=== PATIENT | female | born 1930 | race Caucasian/White ===

== ENCOUNTER 2017-02-15 13:01 | Inpatient (IN) | payer MEDICARE ==
[2017-02-15 13:08] VITALS: BMI 27.4
[2017-02-15] MEDS ORDERED: Sodium Chloride 0.9% 500 ML IV STA (13:22)
[2017-02-15 13:32] LABS: ADD MANUAL DIFF? NO
[2017-02-15 13:35] LABS: BASO # 0.01 K/mm3 (0.0-2.0); BASO % 0.2 % (0.0-3.0); EOS % 0.5 % (1.5-5.0); GRAN # 4.75 (1.4-6.5); GRAN % 80.3 % (50.0-68.0); HEMATOCRIT 40.1 % (36.0-48.0); LYMPH # 0.7 (1.2-3.4); LYMPH % 11.2 % (22.0-35.0); MEAN CELL VOLUME 85.1 fL (80.0-105.0); MEAN CORPUSCULAR HEMOGLOBIN 29.3 pg (25.0-35.0); MEAN CORPUSCULAR HGB CONC 34.4 g/dl (31.0-37.0); MEAN PLATELET VOLUME 11.7 fl (7.0-11.0); MONO # 0.5 (0.1-0.6); MONO % 7.8 % (1.0-6.0); PLATELET COUNT 205 10^3/uL (120.0-450.0); RED CELL DISTRIBUTION WIDTH 13.3 % (11.5-14.5); WHITE BLOOD COUNT 5.9 10^3/ul (4.5-11.0)
--- NOTE | 2017-02-15 13:41 | ED PDOC ---
Arrival/HPI - General Chief Complaint: GI Problem Time Seen by Provider: 02/15/17 13:21 Historian: Patient - History of Present Illness Narrative History of Present Illness (Text): 02/15/17 13:49 An 86 year old female presents to the Emergency department complaining of bright red hematochezia over night. Patient denies any weakness, shortness of breath, chest pain, dizziness or any other complaints at this time. Time/Duration: Other (overnight) Symptom Onset: Sudden Symptom Course: Unchanged Activities at Onset: Rest Modifying Factors (Text): none Context: Home Past Medical History - Provider Review Nursing Documentation Reviewed: Yes - Tetanus Immunization Tetanus Immunization: Unknown - Cardiac Hx Cardiac Disorders: Yes Hx Cardiac Arrhythmia: Yes Hx Hypertension: Yes - Pulmonary Hx Respiratory Disorders: No - Neurological Hx Neurological Disorder: No Hx Paralysis: No - HEENT Hx HEENT Disorder: No - Renal Hx Renal Disorder: No - Endocrine/Metabolic Hx Endocrine Disorders: No - Hematological/Oncological Hx Blood Disorders: No Hx Blood Transfusions: No Hx Blood Transfusion Reaction: No - Integumentary Hx Dermatological Disorder: No - Musculoskeletal/Rheumatological Hx Musculoskeletal Disorders: Yes (OSTEOPENIA) - Gastrointestinal Hx Gastrointestinal Disorders: No - Genitourinary/Gynecological Hx Genitourinary Disorders: Yes Other/Comment: vaginal prolapse - Psychiatric Hx Psychophysiologic Disorder: No Hx Emotional Abuse: No Hx Physical Abuse: No Hx Substance Use: No - Surgical History Hx Eye Surgery: Yes - Anesthesia Hx Anesthesia: Yes Hx Anesthesia Reactions: No Hx Malignant Hyperthermia: No - Suicidal Assessment Feels Threatened In Home Enviroment: No Family/Social History - Physician Review Nursing Documentation Reviewed: Yes Family/Social History: No Known Family HX Smoking Status: Former Smoker Hx Alcohol Use: No Hx Substance Use: No Hx Substance Use Treatment: No Allergies/Home Meds Allergies/Adverse Reactions: Allergies ciprofloxacin Allergy (Intermediate, Verified 02/16/17 20:17) RASH RED RASH ON TRUNK Penicillins Allergy (Verified 02/15/17 13:08) RASH Home Medications: Home Meds Medication Instructions Recorded Confirmed Calcium Carbonate/Magnesium Ox 1 tab PO DAILY 11/01/13 02/18/17 [Oyster Shell Calcium-Magnes Tb] Diltiazem HCl [Tiazac] 240 mg PO DAILY 06/22/16 02/18/17 Simvastatin [Zocor] 10 mg PO DAILY 06/22/16 02/18/17 Review of Systems - Physician Review All systems were reviewed & negative as marked: Yes Physical Exam - Physical Exam Narrative Physical Exam (Text): 02/15/17 13:48 - Review of Systems Constitutional: Normal. absent: Fatigue, Weight Change, Fevers Eyes: Normal ENT: Normal Respiratory: Normal absent: SOB, Cough, Sputum Cardiovascular: Normal absent: Chest pain, Palpitations, Syncope Gastrointestinal: Present: hematochezia absent: Abdominal pain, Diarrhea, Nausea , Vomiting Genitourinary: Normal. absent: Dysuria, Frequency, Hematuria Musculoskeletal: Normal. absent: Arthralgias, Back Pain, Neck Pain Skin: Normal Neurological: Normal absent: Focal Weakness Endocrine: Normal Hemo/Lymphatic: Normal Psychiatric: Normal - Physical exam Patient appears age appropriate, speaking full sentences without difficulty - Systems Exam Head: Present: Atraumatic, Normocephalic Pupils: Present: PERRL Extraocular Muscles: Present: EOMI Conjunctiva: Present: Normal Mouth: Present: Moist Mucous Membranes Neck: Present: Normal Range of Motion. No: MIDLINE TENDERNESS, Paraspinal Tenderness Respiratory/Chest: Present: Clear to Auscultation, Good Air Exchange. No: Respiratory Distress, Accessory Muscle Use, Tachypneic Cardiovascular: Present: Regular Rate and Rhythm, Normal S1, S2, Peripheral Pulses Present. No: Murmurs Abdomen: Present: Normal Bowel Sounds, No: Tenderness, Peritoneal Signs, Rebound, Guarding, Distention Back: Present: Normal Inspection. No: Midline Tenderness, Paraspinal Tenderness Upper Extremity: Present: Normal Inspection. No: Cyanosis, Edema Lower Extremity: Present: Normal Inspection. No: Edema Neurological: Present: GCS=15, Speech Normal, cranial nerves II through XII fully intact with no cerebellar abnormality, neuro-sensory fully intact. No focal neurological deficits. Skin: Present: Warm, Dry, Normal Color. No: Rashes Lymphatic: Present: OX3, NI, NC Psychiatric: Present: Alert, Oriented x 3, Normal Insight, Normal Concentration Rectal: Present: good rectal tone, hard stool in vault No: hemorrhoid (resolution rep : josiah Connell) Vital Signs Reviewed: Yes Vital Signs Temp Pulse Resp BP Pulse Ox 02/15/17 19:00 78 18 160/81 H 100 02/15/17 17:00 85 18 153/61 H 100 02/15/17 15:01 78 18 155/59 H 100 02/15/17 13:08 99 F 80 16 157/57 H 100 Temperature: Afebrile Blood Pressure: Hypertensive Pulse: Regular Respiratory Rate: Normal Appearance: Positive for: Well-Appearing, Non-Toxic, Comfortable Pain Distress: None Mental Status: Positive for: Alert and Oriented X 3 Medical Decision Making ED Course and Treatment: 02/15/17 13:41 Impression: 86 year old female with bright red hematochezia. On physical exam, patient's rectal exam (+) had hard stool in vault, good rectal tone, no hemorrhoids. (+) for blood Differential Diagnosis include but are not limited to: diverticular disease vs. anemia Plan: -- EKG -- Labs -- Protonix, IV fluids -- Reassess and disposition Prior Visits: Notes and results from previous visits were reviewed. Patient last seen in the Emergency department on 06/22/16 for evaluation of lower abdominal and rectal pain. Patient felt better after Bowel movement and reported no longer tender to palpation in lower abdomen. Patient was advised to follow up with Dr. Molina. Progress Notes: EKG: Ordered, reviewed, and independently interpreted the EKG. Rate : 70 BPM Rhythm : NSR Interpretation : No ST-segment elevations or depressions, no T-wave inversions, normal intervals. Comparison : No previous EKG for comparison. 02/15/17 14:49 - Lab Interpretations Lab Results: 02/15/17 13:20 02/15/17 13:20 Lab Results 02/15/17 14:06: Transferrin 232.82 02/15/17 13:24: TIBC 303 02/15/17 13:20: Sodium 141, Potassium 3.6, Chloride 101, Carbon Dioxide 31, Anion Gap 13, BUN 19, Creatinine 0.6, Est GFR ( Amer) > 60, Est GFR (Non- Af Amer) > 60, Random Glucose 130 H, Calcium 9.3, Ferritin 94.0, Total Bilirubin 1.0, AST 267 H, ALT 315 H, Alkaline Phosphatase 105, Lactate Dehydrogenase 766 H, Total Creatine Kinase 46, Troponin I < 0.01, Total Protein 7.9, Albumin 4.2, Globulin 3.7, Albumin/Globulin Ratio 1.1 02/15/17 13:20: PT 11.4, INR 1.06, APTT 26.8 02/15/17 13:20: WBC 5.9 D, RBC 4.71, Hgb 13.8, Hct 40.1, MCV 85.1, MCH 29.3, MCHC 34.4, RDW 13.3, Plt Count 205, MPV 11.7 H, Gran % 80.3 H, Lymph % (Auto) 11.2 L, Pitt % (Auto) 7.8 H, Eos % (Auto) 0.5 L, Baso % (Auto) 0.2, Gran # 4.75 , Lymph # 0.7 L, Pitt # 0.5, Eos # 0.0, Baso # 0.01 I have reviewed the lab results: Yes - RAD Interpretation Radiology Orders: 02/15/17 14:57 CHEST PORTABLE [RAD] Stat - EKG Interpretation Interpreted by ED Physician: Yes Type: 12 lead EKG - Medication Orders Current Medication Orders: Discontinued Medications Alprazolam (Xanax) 0.25 mg PO TID PRN; Protocol PRN Reason: Anxiety Stop: 02/24/17 14:01 Bisacodyl (Dulcolax) 10 mg RC ONCE ONE Stop: 02/16/17 09:04 Last Admin: 02/16/17 13:49 Dose: Not Given Non-Admin Reason: Patient Refused Bisacodyl (Dulcolax) 5 mg PO BID ONE Stop: 02/16/17 13:04 Last Admin: 02/16/17 13:49 Dose: Not Given Non-Admin Reason: Patient Refused Bisacodyl (Dulcolax) 10 mg RC ONCE ONE Stop: 02/17/17 07:40 Last Admin: 02/17/17 08:23 Dose: 10 mg Diltiazem HCl (Cardizem Cd) 240 mg PO DAILY VIC Last Admin: 02/18/17 08:59 Dose: 240 mg Diphenhydramine HCl (Benadryl) 25 mg IVP STAT STA Stop: 02/16/17 04:02 Last Admin: 02/16/17 22:06 Dose: Diphenhydramine HCl (Benadryl) Confirm Administered Dose 50 mg .ROUTE .STK-MED ONE Stop: 02/16/17 04:12 Last Admin: 02/16/17 22:06 Dose: Fentanyl (Fentanyl) Confirm Administered Dose 100 mcg .ROUTE .STK-MED ONE Stop: 02/18/17 14:02 Glucagon (Glucagen Diagnostic Kit) Confirm Administered Dose 1 mg .ROUTE .STK- MED ONE Stop: 02/18/17 08:19 Sodium Chloride (Sodium Chloride 0.9%) 500 mls @ 1,000 mls/hr IV .Q30M STA Stop: 02/15/17 13:51 Last Admin: 02/15/17 13:41 Dose: 1,000 mls/hr Sodium Chloride (Sodium Chloride 0.9%) 1,000 mls @ 70 mls/hr IV .[id number] VIC Last Admin: 02/17/17 05:19 Dose: 70 mls/hr Ciprofloxacin (Cipro 400mg/200ml Dsw) 200 mls @ 133.3 mls/hr IVPB Q12 VIC PRN Reason: Protocol Stop: 02/15/17 23:31 Last Admin: 02/15/17 23:08 Dose: 133.3 mls/hr Potassium Chloride (Potassium Chloride 10 Meq/100 Ml) 10 meq in 100 mls @ 100 mls/hr IVPB ONCE ONE Stop: 02/16/17 09:33 Last Admin: 02/16/17 10:09 Dose: 100 mls/hr Aztreonam (Azactam 1 Gm) 100 mls @ 100 mls/hr IVPB Q8 VIC PRN Reason: Protocol Stop: 02/24/17 14:01 Last Admin: 02/18/17 16:08 Dose: Not Given Non-Admin Reason: Patient in Endo Metronidazole (Flagyl) 500 mg in 100 mls @ 100 mls/hr IVPB Q8 VIC PRN Reason: Protocol Last Admin: 02/18/17 16:08 Dose: Not Given Non-Admin Reason: Patient in Endo Vancomycin HCl (Vancomycin 1gm) 1 gm in 250 mls @ 167 mls/hr IVPB Q12H VIC PRN Reason: Protocol Last Admin: 02/18/17 10:10 Dose: 167 mls/hr Potassium Chloride (Potassium Chloride 10 Meq/100 Ml) 10 meq in 100 mls @ 100 mls/hr IVPB ONCE ONE Stop: 02/18/17 09:17 Last Admin: 02/18/17 08:57 Dose: 100 mls/hr Lactated Ringer's (Lactated Ringer's) 1,000 mls @ 75 mls/hr IV .[id number] VIC Stop: 02/18/17 16:57 Indomethacin (Indocin Suppository) Confirm Administered Dose 100 mg SC .STK-MED ONE Stop: 02/18/17 08:20 Iohexol (Omnipaque 240 (50 Ml)) Confirm Administered Dose 50 ml .ROUTE .STK-MED ONE Stop: 02/15/17 20:26 Last Admin: 02/16/17 22:07 Dose: Iohexol (Omnipaque 240 (50 Ml)) Confirm Administered Dose 100 ml .ROUTE .STK- MED ONE Stop: 02/18/17 08:19 Midazolam HCl (Versed Inj) Confirm Administered Dose 2 mg .ROUTE .STK-MED ONE Stop: 02/18/17 14:02 Mineral Oil (Fleet Mineral Oil Enema) 135 ml RC Q6 [facility] Last Admin: 02/17/17 05:44 Dose: 135 ml Pantoprazole Sodium (Protonix Inj) 40 mg IVP STAT STA Stop: 02/15/17 13:23 Last Admin: 02/15/17 13:40 Dose: 40 mg Pantoprazole Sodium (Protonix Inj) 40 mg IVP DAILY [facility] Last Admin: 02/18/17 08:59 Dose: 40 mg Pneumococcal Polyvalent Vaccine (Pneumovax 23 Vaccine) 0.5 ml IM .ONCE ONE Stop: 02/15/17 23:04 Polyethylene Glycol (Miralax) 17 gm PO BID [facility] Last Admin: 02/18/17 17:57 Dose: 17 gm Potassium Chloride (K-Dur 20 Meq Er Tab) 40 meq PO ONCE ONE Stop: 02/17/17 09:40 Last Admin: 02/17/17 10:13 Dose: 40 meq Potassium Chloride (Potassium Chloride Oral Soln) 40 meq PO ONCE ONE Stop: 02/18/17 08:56 Last Admin: 02/18/17 10:27 Dose: 40 meq Propofol (Diprivan) Confirm Administered Dose 200 mg .ROUTE .STK-MED ONE Stop: 02/18/17 14:02 Succinylcholine Chloride (Quelicin) Confirm Administered Dose 200 mg IV .STK- MED ONE Stop: 02/18/17 14:04 - Scribe Statement The provider has reviewed the documentation as recorded by the Josiah Connell All medical record entries made by the Scribe were at my direction and personally dictated by me. I have reviewed the chart and agree that the record accurately reflects my personal performance of the history, physical exam, medical decision making, and the department course for this patient. I have also personally directed, reviewed, and agree with the discharge instructions and disposition. Disposition/Present on Arrival - Present on Arrival Any Indicators Present on Arrival: No History of DVT/PE: No History of Uncontrolled Diabetes: No Urinary Catheter: No History of Decub. Ulcer: No History Surgical Site Infection Following: None - Disposition Have Diagnosis and Disposition been Completed?: Yes Diagnosis: Hematochezia Disposition: HOSPITALIZED Disposition Time: 15:00 Patient Plan: Admission Condition: FAIR
[2017-02-15 13:53] LABS: INR 1.06 (0.93-1.08); PARTIAL THROMBOPLASTIN TIME 26.8 Seconds (23.7-30.8)
[2017-02-15 14:02] LABS: ALB/GLOB RATIO 1.1 (1.1-1.8); ALKALINE PHOSPHATASE 105 U/L (38-133); ALT/SGPT 315 U/L (7-56); AST/SGOT 267 U/L (15-39); BLOOD UREA NITROGEN 19 mg/dL (7-21); CALCIUM 9.3 mg/dL (8.4-10.5); CARBON DIOXIDE 31 mmol/L (21-33); CHLORIDE 101 mmol/L (98-107); GFR AFRICAN-AMERICAN > 60; GLUCOSE,RANDOM 130 mg/dL (70-110); POTASSIUM 3.6 mmol/L (3.6-5.0); SODIUM 141 mmol/L (132-148); TOTAL PROTEIN 7.9 g/dL (5.8-8.3)
[2017-02-15 14:13] LABS: TROPONIN I < 0.01 ng/mL
--- NOTE | 2017-02-15 15:16 | RAD ---
HISTORY: admission COMPARISON: No prior. FINDINGS: LUNGS: No active pulmonary disease. PLEURA: No significant pleural effusion identified, no pneumothorax apparent. CARDIOVASCULAR: Normal. OSSEOUS STRUCTURES: No significant abnormalities. VISUALIZED UPPER ABDOMEN: Normal. OTHER FINDINGS: None. IMPRESSION: No active disease.
[2017-02-15] MEDS: Sodium Chloride 0.9% 1,000 ML IV SCH (15:36)
[2017-02-15 16:25] LABS: PH,URINE 6.5 (4.7-8.0); URINE BILIRUBIN NEGATIVE (NEGATIVE); URINE BLOOD LARGE (NEGATIVE); URINE GLUCOSE (UA) NEGATIVE (NEGATIVE); URINE KETONE NEGATIVE (NEGATIVE); URINE LEUKOCYTE ESTERASE SMALL Leu/uL (NEGATIVE); URINE PROTEIN TRACE mg/dL (<30 mg/dL); URINE UROBILINOGEN 0.2 E.U./dL (<1 E.U./dL)
[2017-02-15 16:30] LABS: URINE APPEARANCE SL CLOUDY (CLEAR); URINE COLOR YELLOW (YELLOW)
[2017-02-15 17:02] LABS: URINE BACTERIA MOD (NEG)
[2017-02-15] MEDS ORDERED: Iohexol 240 (50 ml) ONE (20:25)
--- NOTE | 2017-02-15 20:27 | HP ---
I know her very well from house calls. I was supposed to do a house call on her today. When we call ed up to tell her I was coming, she told the girls in my office she was having bright red blood, a lo t of bleeding from the rectum, was very scared and she said she was going to go to the Emergency Room . I am seeing her here in the Emergency Room at [facility]. She is an 86-year-old white female that I know very well who comes in with bright red blood per rectum. She is very scared. Bettye issac said that it has been going on for about 24 hours, it is not stopping. No chest pain or shortness of breath. PAST MEDICAL HISTORY: She has a past medical history of arrhythmia, hypertension, osteopenia, vagina l prolapse. She has had eye surgery before. FAMILY HISTORY: Hypertension in the family. SOCIAL HISTORY: Former smoker, no alcohol, no drugs. ALLERGIES: PENICILLIN. MEDICATIONS: She is on calcium, Tiazac for Afib, Zocor and a baby aspirin. REVIEW OF SYSTEMS: She is a high fall risk. No acute vision changes, no acute hearing changes, no s ore throat, no chest pain or shortness of breath. Mild abdominal discomfort. She is having bright r ed blood per rectum a lot for the past 24 hours. She is weak, difficult for her to walk, very worrie d and nervous. PHYSICAL EXAMINATION: GENERAL: This is a nice little [id number] female with bright red blood in the rectum. VITAL SIGNS: She has a 99 temp, 80 pulse, 16 respiratory rate, 157/57 blood pressure, 100% O2 sat on room air. HEENT: Head is atraumatic, normocephalic. Extraocular muscles are intact. Pupils reactive to light . Throat is moist. NECK: Supple. Thyroid midline. HEART: Regular rate. Normal S1, S2. LUNGS: Clear to auscultation bilaterally, fair air exchange. ABDOMEN: Soft, nontender, positive bowel sounds, no guarding, no rebound, no CVA tenderness. EXTREMITIES: No edema. SKIN: Warm and dry. NEUROLOGIC: She has a GCS 15. Speech is normal. Cranial nerves II-XII grossly intact. She is aler t and oriented x 3. RECTAL: There was positive blood in the stool, good rectal tone, hard stool in vault as per ER evalu ation. LYMPHATICS: Nonpalpable lymphadenopathy. LABORATORY DATA: She had multiple tests done. She had a urine, which is large blood and moderate ba cteria. She has a 141 sodium, potassium 3.6, BUN 19, creatinine 0.6, GFR is greater than 60, sugar i s 130, calcium 9.3, total bili is 1, AST is 267, ALT is 315, alkaline phosphatase 105, troponin is le ss than 0.01, total protein 7.9, albumin is 4.2. INR is 1.06. White count 5.9, hemoglobin 13.8, hem atocrit 40.1 with 205 platelets. Chest x-ray was fine. EKG pending. I will order chest CAT scan of abdomen and pelvis and a GI consult. She will be on diltiazem, Cipro, Protonix and IV fluids. She is here for bright red blood per rectum and a urinary tract infection. She is also very weak and may need physical therapy or subacute rehab. Gonsalo Sabillon DO cc: [id number] TT: 02/15/2017 20:27:03 diamante
[2017-02-15] MEDS ORDERED: Ciprofloxacin 400mg/200ml D5W 200 ML IVPB SCH (22:00)
--- NOTE | 2017-02-15 22:32 | CT ---
EXAM: CT Abdomen and Pelvis Without Intravenous Contrast CLINICAL HISTORY: 86 years old, female; Signs and symptoms; Other: Rectal bleeding; Additional info: Gi bleed TECHNIQUE: Axial computed tomography images of the abdomen and pelvis without intravenous contrast. This CT exam was performed using one or more of the following dose reduction techniques: automated exposure control, adjustment of the mA and/or kV according to patient size, and/or use of iterative reconstruction technique. Coronal and sagittal reformatted images were created and reviewed. EXAM DATE/TIME: 02/15/2017 6:15 PM COMPARISON: Prior CT abdomen and pelvis of 06/22/2016 8:23:26 PM FINDINGS: LIMITATIONS: Exam is somewhat limited by mild streak/motion artifact. LOWER THORAX: No infiltrate seen in the lung bases. ABDOMEN: LIVER: Suspect mild intrahepatic biliary ductal dilatation. GALLBLADDER AND BILE DUCTS: Moderate to severe gallbladder dilatation. There is also biliary ductal dilatation, with the common bile duct measuring up to 1.2 cm in diameter. Findings are new compared to the prior CT. No cause is identified by CT. No radiopaque gallstones or bile duct stones are visualized. No CT evidence of acute cholecystitis. PANCREAS: No CT evidence of acute pancreatitis. SPLEEN: No acute abnormality of the spleen identified. ADRENALS: No acute abnormality of the adrenal glands identified. KIDNEYS AND URETERS: Indeterminate 1.2 hyperdense lesion in the left kidney, image 76/series 2. This could represent a hyperdense cyst, but a solid lesion is not definitely excluded. Recommend further evaluation with renal ultrasound or renal protocol CT or MRI, on a nonemergent basis. No acute abnormality of the kidneys identified. STOMACH AND BOWEL: Rectum is stool-filled and is mildly dilated. There is mild infiltration of the perirectal fat. Findings could represent mild stercoral proctitis. No evidence of significant rectal wall thickening. No evidence of a diffuse large bowel obstruction. No evidence of diffuse colitis/pancolitis. No evidence of small bowel obstruction. No acute abnormality of the stomach or duodenum identified. APPENDIX: Appendix is seen, and is within normal limits in appearance. PELVIS: BLADDER: No acute abnormality of the bladder identified. REPRODUCTIVE:No acute abnormality of the reproductive organs is seen. No acute abnormality of the uterus identified. No evidence of large adnexal masses. ABDOMEN and PELVIS: INTRAPERITONEAL SPACE: No evidence of free intraperitoneal air or fluid. BONES/JOINTS: No acute fractures or other acute bony abnormality noted. VASCULATURE: No evidence of abdominal aortic aneurysm. No evidence of periaortic hemorrhage. LYMPH NODES: No evidence of diffuse lymphadenopathy. IMPRESSION: - Possible mild stercoral proctitis. - Gallbladder dilatation and biliary ductal dilatation, cause not identified by CT. Recommend correlation with LFTs for laboratory evidence of biliary obstruction. Findings could potentially be further evaluated with right upper quadrant ultrasound - Incidental indeterminate hyperdense renal lesion. See above. - See above for remaining findings.
[2017-02-15] MEDS ORDERED: Pneumococcal 23-Valent Vaccine IM ONE (23:03)
[2017-02-16] MEDS ORDERED: DiphenhydrAMINE 50 mg/ml Inj IVP STA (04:01)
[2017-02-16] MEDS ORDERED: DiphenhydrAMINE 50 mg/ml Inj ONE (04:11)
[2017-02-16 07:04] LABS: HEMATOCRIT 38.4 % (36.0-48.0); MEAN CELL VOLUME 84.6 fL (80.0-105.0); MEAN CORPUSCULAR HEMOGLOBIN 28.6 pg (25.0-35.0); MEAN CORPUSCULAR HGB CONC 33.9 g/dl (31.0-37.0); MEAN PLATELET VOLUME 11.7 fl (7.0-11.0); RED CELL DISTRIBUTION WIDTH 13.4 % (11.5-14.5); WHITE BLOOD COUNT 4.9 10^3/ul (4.5-11.0)
[2017-02-16 08:06] LABS: ALB/GLOB RATIO 1.1 (1.1-1.8); ALKALINE PHOSPHATASE 90 U/L (38-133); ALT/SGPT 255 U/L (7-56); AST/SGOT 170 U/L (15-39); BILIRUBIN,TOTAL 1.1 mg/dL (0.2-1.3); BLOOD UREA NITROGEN 9 mg/dL (7-21); CALCIUM 8.5 mg/dL (8.4-10.5); CARBON DIOXIDE 29 mmol/L (21-33); CHLORIDE 104 mmol/L (95-110); GFR AFRICAN-AMERICAN > 60; GLUCOSE,RANDOM 97 mg/dL (70-110); POTASSIUM 3.5 mmol/L (3.6-5.0); SODIUM 143 mmol/L (132-148); TOTAL PROTEIN 6.6 g/dL (5.8-8.3)
--- NOTE | 2017-02-16 09:17 | PN ---
DATE: 02/16/2017 I see her sitting up in bed. She slept fairly well. Not much of an appetite. She tells me there is blood in the stools. She is worried. No abdominal pain. PHYSICAL EXAMINATION: VITAL SIGNS: 97.9 temp, 81 pulse, 161/82 blood pressure, 20 respiratory rate, 99% O2 sat on room air . HEAD: Atraumatic, normocephalic. Throat is moist. NECK: Supple. HEART: Regular rate. LUNGS: Decreased breath sounds but clear. ABDOMEN: Soft, positive bowel sounds, nontender. No guarding, no rebound. EXTREMITIES: Have no edema. She looks weak. MEDICATIONS: She is currently on Cardizem, potassium replacement, Protonix IV, and IV fluids. LABORATORY DATA: She has a 143 sodium, potassium 3.5 (I replaced the potassium), BUN 9, creatinine 0 .5, GFR is greater than 60, sugar is 97, calcium is 8.5. Total bili is 1.1, AST is 170, ALT is 255, alkaline phosphatase 90 - all better. Total protein 6.6. The troponin was less than 0.01. She has a white count of 4.9, hemoglobin steady at 13, hematocrit 38.4, platelets 186. I am waiting for GI to come and see her. The CAT scan of the abdomen and pelvis showed a few things: Possible mild stercoral proctitis, gallbladder dilatation and biliary ductal dilatation. LFTs are elevated. Hypodense lesion in the kidney. We are doing an ultrasound of the abdomen and pelvis as r ecommended by the CAT scan. Still waiting for GI to come in. She is still n.p.o. I want to see naeem rushing physical therapy has to add to the picture. She might need TCU or subacute rehab. I am hoping the y come in today and give me an opinion if she needs TCU or subacute rehab before she goes home. She is n.p.o. Awaiting for GI and physical therapy. Gonsalo Sabillon DO cc: [id number] TT: 02/16/2017 09:16:26 Confirmation # [id number] Dictation # [id number] mn
--- NOTE | 2017-02-16 09:51 | CP.PCM.CON ---
<Risa Tavera - Last Filed: 02/16/17 13:06> History of Present Illness - History of Present Illness History of Present Illness: Gastroenterology Fellow/PGY4 Consult Note 86 year old female with history of Hypertension, Hyperlipidemia, vaginal prolapse, and Constipation presenting with rectal bleeding and rectal pain. Patient describes having low back and rectal pain for one day. She notes two large episodes of hematochezia with bowel movement yesterday. No further bowel movement or hematochezia since admission yesterday. Denies fever, chills, sweats , nausea, vomiting, abdominal pain, diarrhea, constipation, melena, weight loss , sick contacts, or recent antibiotics. Notes bowel habits every one to two days with note of prevention of constipation with daily prunes and fiber intake. Notes mainly vegetarian diet. Notes similar episode leading to ER visit 05/[address] A/P IV contrast showing fecal impaction with proctitis. Nursing denies acute events overnight. Endorses prior colonoscopy years ago endorsed to be normal. Family- denies colon cancer Social -denies tobacco, alcohol, illicit drug use Surgery- 05/2012 thyroid biopsy- multinodular goiter, 10/2013 L4-L5 nerve root block Review of Systems - Review of Systems Review of Systems: A 12-point review of systems negative except for as above Past Patient History - Tetanus Immunizations Tetanus Immunization: Unknown - Past Social History Smoking Status: Former Smoker - CARDIAC Hx Cardiac Disorders: Yes Hx Cardia Arrhythmia: Yes Hx Hypercholesterolemia: Yes Hx Hypertension: Yes - PULMONARY Hx Respiratory Disorders: No - NEUROLOGICAL Hx Neurological Disorder: No - HEENT Hx HEENT Problems: Yes (left eye sx) - RENAL Hx Chronic Kidney Disease: No - ENDOCRINE/METABOLIC Hx Endocrine Disorders: No - HEMATOLOGICAL/ONCOLOGICAL Hx Blood Disorders: No - INTEGUMENTARY Hx Dermatological Problems: Yes Other/Comment: red raised rash to face chest and abd, pt scratching abd - MUSCULOSKELETAL/RHEUMATOLOGICAL Hx Musculoskeletal Disorders: Yes (OSTEOPENIA) Hx Falls: No Hx Unsteady Gait: Yes (walker) Other/Comment: sciatica - GASTROINTESTINAL Other/Comment: colonopscopy - GENITOURINARY/GYNECOLOGICAL Hx Genitourinary Disorders: Yes Other/Comment: vaginal prolapse - PSYCHIATRIC Hx Psychophysiologic Disorder: No Hx Emotional Abuse: No Hx Physical Abuse: No - SURGICAL HISTORY Hx Surgeries: Yes Other/Comment: t&a, us guided thyroid bx - ANESTHESIA Hx Anesthesia: Yes Hx Anesthesia Reactions: No Hx Malignant Hyperthermia: No Meds Allergies/Adverse Reactions: Allergies Allergy/AdvReac Type Severity Reaction Status Date / Time Penicillins Allergy RASH Verified 02/15/17 13:08 - Medications Medications: Current Medications Diltiazem HCl (Cardizem Cd) 240 mg PO DAILY VIC Sodium Chloride (Sodium Chloride 0.9%) 1,000 mls @ 70 mls/hr IV .[id number] VIC Last Admin: 02/15/17 15:36 Dose: 70 mls/hr Pantoprazole Sodium (Protonix Inj) 40 mg IVP DAILY VIC Polyethylene Glycol (Miralax) 17 gm PO BID VIC Physical Exam - Constitutional Appears: Non-toxic, No Acute Distress - Head Exam Head Exam: ATRAUMATIC, NORMOCEPHALIC - Eye Exam Eye Exam: EOMI, PERRL Pupil Exam: PERRL. absent: Miosis, Mydriatic - ENT Exam ENT Exam: Mucous Membranes Moist, Normal Oropharynx - Neck Exam Neck exam: Positive for: Full Rom, Normal Inspection - Respiratory Exam Respiratory Exam: Clear to Auscultation Bilateral. absent: Rales, Rhonchi, Wheezes - Cardiovascular Exam Cardiovascular Exam: RRR, +S1, +S2. absent: Gallop, Rubs - GI/Abdominal Exam GI & Abdominal Exam: Normal Bowel Sounds, Soft. absent: Distended, Firm, Guarding, Organomegaly, Rebound, Rigid, Tenderness - Rectal Exam Rectal Exam: Fecal Impaction, NORMAL INSPECTION. absent: Black Stool, Bloody Stool, Hemorrhoids Additional comments: formed mobile balls in rectum with soft outer lining- orange-brown in color - Extremities Exam Extremities exam: Positive for: normal inspection. Negative for: pedal edema - Neurological Exam Neurological exam: Alert - Psychiatric Exam Psychiatric exam: Normal Affect, Normal Mood - Skin Skin Exam: Dry, Intact, Normal Color, Warm Results - Vital Signs Recent Vital Signs: Last Vital Signs Temp 97.9 F 02/16/17 00:01 Pulse 72 02/16/17 02:00 Resp 20 02/16/17 00:01 BP 161/82 H 02/16/17 00:01 Pulse Ox 99 02/16/17 00:01 - Labs Result Diagrams: 02/16/17 05:00 02/16/17 06:25 Labs: Laboratory Results - last 24 hr 02/15/17 02/15/17 02/15/17 15:15 15:45 17:00 WBC RBC Hgb Hct MCV MCH MCHC RDW Plt Count MPV Sodium Potassium Chloride Carbon Dioxide Anion Gap BUN Creatinine Est GFR ( Amer) Est GFR (Non-Af Amer) Random Glucose Calcium Total Bilirubin AST ALT Alkaline Phosphatase Total Protein Albumin Globulin Albumin/Globulin Ratio Urine Color Yellow Urine Appearance Sl cloudy Urine pH 6.5 Ur Specific [place] 1.015 Urine Protein Trace H Urine Glucose (UA) Negative Urine Ketones Negative Urine Blood Large H Urine Nitrate Negative Urine Bilirubin Negative Urine Urobilinogen 0.2 Ur Leukocyte Esterase Small H Urine RBC 10 - 15 Urine WBC 2 - 5 Ur Epithelial Cells 1 - 3 Urine Bacteria Mod Blood Type B POSITIVE Blood Type Confirm B POSITIVE Antibody Screen Negative BBK History Checked No verified bt 02/16/17 02/16/17 05:00 06:25 WBC 4.9 RBC 4.54 Hgb 13.0 Hct 38.4 MCV 84.6 MCH 28.6 MCHC 33.9 RDW 13.4 Plt Count 186 MPV 11.7 H Sodium 143 Potassium 3.5 L Chloride 104 Carbon Dioxide 29 Anion Gap 14 BUN 9 Creatinine 0.5 Est GFR ( Amer) > 60 Est GFR (Non-Af Amer) > 60 Random Glucose 97 Calcium 8.5 Total Bilirubin 1.1 AST 170 H ALT 255 H Alkaline Phosphatase 90 Total Protein 6.6 Albumin 3.4 Globulin 3.2 Albumin/Globulin Ratio 1.1 Urine Color Urine Appearance Urine pH Ur Specific [place] Urine Protein Urine Glucose (UA) Urine Ketones Urine Blood Urine Nitrate Urine Bilirubin Urine Urobilinogen Ur Leukocyte Esterase Urine RBC Urine WBC Ur Epithelial Cells Urine Bacteria Blood Type Blood Type Confirm Antibody Screen BBK History Checked Assessment & Plan - Assessment and Plan (Free Text) Assessment: 86 year old female with history of Hypertension, Hyperlipidemia, and Constipation presenting with hematochezia and rectal pain. CT A/P PO contrast showed stercoral proctitis with fecal impaction, mild intrahepatic dilatation, moderate to severe gallbladder dilatation, and CBD 1.2cm. Similar episode leading to ER visit 05/[address] A/P IV contrast showing fecal impaction with proctitis, normal gallbladder, and no biliary dilatation. Nursing denies acute events overnight. Endorses prior colonoscopy years ago endorsed to be normal. Plan: >hematochezia likely in setting stercoral proctitis >H/H stable >hemodynamically stable >constipation- stool throughout colon on CT >rectal exam with mobile stool and sensation for bowel movement >ordered Dulcolax RC and tap water/soap suds enema >bowel regimen-Miralax BID, Dulcolax BID, mineral oil enema q6H >clear liquid diet >continue supportive care: pain control, IVFs >elevated transaminases, normal LFTs 05/2016 >ordered Hepatitis panel, autoimmune workup >pending Ultrasound to evaluate biliary dilatations on CT >ordered MRCP without contrast to evaluate biliary tree >further recommendations based on clinical course <Kevin Fallon - Last Filed: 02/16/17 15:57> Meds - Medications Medications: Current Medications Diltiazem HCl (Cardizem Cd) 240 mg PO DAILY VIC Sodium Chloride (Sodium Chloride 0.9%) 1,000 mls @ 70 mls/hr IV .[id number] VIC Last Admin: 02/15/17 15:36 Dose: 70 mls/hr Mineral Oil (Fleet Mineral Oil Enema) 135 ml RC Q6 VIC Pantoprazole Sodium (Protonix Inj) 40 mg IVP DAILY VIC Polyethylene Glycol (Miralax) 17 gm PO BID VIC Results - Vital Signs Recent Vital Signs: Last Vital Signs Temp 99 F 02/16/17 12:00 Pulse 99 H 02/16/17 12:00 Resp 19 02/16/17 12:00 BP 173/80 H 02/16/17 12:00 Pulse Ox 99 02/16/17 00:01 - Labs Result Diagrams: 02/16/17 05:00 02/16/17 06:25 Labs: Laboratory Results - last 24 hr 02/15/17 02/15/17 02/15/17 15:15 15:45 17:00 WBC RBC Hgb Hct MCV MCH MCHC RDW Plt Count MPV Sodium Potassium Chloride Carbon Dioxide Anion Gap BUN Creatinine Est GFR ( Amer) Est GFR (Non-Af Amer) Random Glucose Calcium Magnesium Iron Total Bilirubin AST ALT Alkaline Phosphatase Total Protein Albumin Globulin Albumin/Globulin Ratio Urine Color Yellow Urine Appearance Sl cloudy Urine pH 6.5 Ur Specific [place] 1.015 Urine Protein Trace H Urine Glucose (UA) Negative Urine Ketones Negative Urine Blood Large H Urine Nitrate Negative Urine Bilirubin Negative Urine Urobilinogen 0.2 Ur Leukocyte Esterase Small H Urine RBC 10 - 15 Urine WBC 2 - 5 Ur Epithelial Cells 1 - 3 Urine Bacteria Mod Blood Type B POSITIVE Blood Type Confirm B POSITIVE Antibody Screen Negative BBK History Checked No verified bt 02/16/17 02/16/17 02/16/17 05:00 06:25 08:30 WBC 4.9 RBC 4.54 Hgb 13.0 Hct 38.4 MCV 84.6 MCH 28.6 MCHC 33.9 RDW 13.4 Plt Count 186 MPV 11.7 H Sodium 143 Potassium 3.5 L Chloride 104 Carbon Dioxide 29 Anion Gap 14 BUN 9 Creatinine 0.5 Est GFR ( Amer) > 60 Est GFR (Non-Af Amer) > 60 Random Glucose 97 Calcium 8.5 Magnesium Iron 68 Total Bilirubin 1.1 AST 170 H ALT 255 H Alkaline Phosphatase 90 Total Protein 6.6 Albumin 3.4 Globulin 3.2 Albumin/Globulin Ratio 1.1 Urine Color Urine Appearance Urine pH Ur Specific [place] Urine Protein Urine Glucose (UA) Urine Ketones Urine Blood Urine Nitrate Urine Bilirubin Urine Urobilinogen Ur Leukocyte Esterase Urine RBC Urine WBC Ur Epithelial Cells Urine Bacteria Blood Type Blood Type Confirm Antibody Screen BBK History Checked 02/16/17 08:30 WBC RBC Hgb Hct MCV MCH MCHC RDW Plt Count MPV Sodium Potassium Chloride Carbon Dioxide Anion Gap BUN Creatinine Est GFR ( Amer) Est GFR (Non-Af Amer) Random Glucose Calcium Magnesium 2.0 Iron Total Bilirubin AST ALT Alkaline Phosphatase Total Protein Albumin Globulin Albumin/Globulin Ratio Urine Color Urine Appearance Urine pH Ur Specific [place] Urine Protein Urine Glucose (UA) Urine Ketones Urine Blood Urine Nitrate Urine Bilirubin Urine Urobilinogen Ur Leukocyte Esterase Urine RBC Urine WBC Ur Epithelial Cells Urine Bacteria Blood Type Blood Type Confirm Antibody Screen BBK History Checked Attending/Attestation - Attestation I have personally seen and examined this patient.: Yes I have fully participated in the care of the patient.: Yes I have reviewed all pertinent clinical information: Yes Notes (Text): 02/16/17 15:53 86 year old female with history of HTN, HLD, and Constipation a/w hematochezia and rectal pain, also noted to have elevated LFTs and biliary dilation. 1. Constipation 2. Fecal impaction 3. Elevated LFTs 4. Biliary dilation Plan: -recommend bowel regimen with enemas, suppositories, and miralax -no ongoing bleeding / hgb stable -check viral/autoimmune hepatitis serologies -check MRCP to r/o choledocholithiasis and eval biliary dilation further
[2017-02-16] MEDS ORDERED: DILTIAZEM HCL 240 MG PO SCH (10:00)
[2017-02-16] MEDS: POLYETHYLENE GLYCOL 3350 17 GM/Dose PACKET PO SCH ×2 (10:00→19:07)
[2017-02-16] MEDS: diltiaZEM 240 mg/24 Hours CD Cap PO SCH (10:06)
--- NOTE | 2017-02-16 11:25 | CARD ---
APPROVED REPORT EKG Measurement Heart [id number] <Conclusion> Normal sinus rhythm Normal ECG
[2017-02-16] MEDS ORDERED: Bisacodyl 5mg EC Tab PO ONE (13:03)
--- NOTE | 2017-02-16 14:04 | US ---
HISTORY: mass COMPARISON: CT abdomen/pelvis 02/15/2017 TECHNIQUE: Sonographic evaluation of the abdomen. FINDINGS: LIVER: Measures 15.0 cm. Normal echogenicity of the liver parenchyma. No mass. There is mild intrahepatic biliary ductal dilatation. GALLBLADDER: No cholelithiasis. Mild diffuse nonspecific mural thickening, approximately 3 mm. No pericholecystic fluid. Negative sonographic Burg[place] sign. COMMON BILE DUCT: Measures 9 mm. No evidence of choledocholithiasis. PANCREAS: Unremarkable as visualized. No mass. No ductal dilatation. RIGHT KIDNEY: Measures 10.0cm. Normal echogenicity. No calculus, mass, or hydronephrosis. LEFT KIDNEY: Measures 10.9cm. Normal echogenicity. Lower pole cortical cyst, 1.2 x 1.2 x 1.3 cm. Mild hydronephrosis. No calculus. SPLEEN: Normal in size and contour. No mass. AORTA: No aneurysmal dilatation. IVC: Unremarkable. OTHER FINDINGS: None. IMPRESSION: Mild intra and extrahepatic biliary ductal dilatation. Uncertain etiology. No evidence of cholelithiasis. Mild nonspecific gallbladder wall thickening. Mild left hydronephrosis. 1.3 Cm simple left lower pole renal cortical cyst.
--- NOTE | 2017-02-16 14:40 | US ---
PROCEDURE: Pelvic ultrasound HISTORY: mass COMPARISON: None available TECHNIQUE: Transabdominal FINDINGS: The uterus measures 4.2 x 2.0 x 3.4 cm. There is no uterine mass. The endometrium measures 3 mm in width. Neither the right nor the left ovary are visualized. The urinary bladder is distended to a volume of 100 cc. The wall is smooth and thin. There is no intraluminal mass. Bilateral ureteral jets are demonstrated. Postvoid, the residual volume in the urinary bladder is 512.7 cc. This is a large postvoid residual. IMPRESSION: Large postvoid residual within the urinary bladder. No additional abnormality.
--- NOTE | 2017-02-16 17:46 | MRI ---
MRCP Indication: Biliary dilatation Technique: Multiplanar, multisequence MR images of the abdomen were obtained, including heavily T2 weighted MRCP images of the biliary system. Rotating maximum intensity projection images of the biliary system were generated. A total of 654 images were submitted for review. Comparison: Abdominal ultrasound performed 02/16/17, CT abdomen and pelvis without IV contrast performed 02/19/17 Findings: Examination markedly limited due to patient condition, motion, and inability to breath hold. Distended gallbladder with mild wall thickening. The common bile duct appears dilated measuring approximately 10 mm in diameter. 3 mm filling defect within the distal common bile duct (series 3, image 11), possibly small stone. There is evidence of an abrupt distal CBD taper. Intrahepatic biliary ductal dilatation. The pancreatic duct does not appear dilated. 10 mm left lower pole renal lesion, incompletely characterized on this noncontrast limited study. Mild right-sided hydronephrosis. No definite left-sided hydronephrosis. The noncontrast included portions of the liver, adrenal glands, spleen, and pancreas appear otherwise unremarkable. No bulky abdominal lymphadenopathy is seen. No ascites. Distended urinary bladder noted. Please note limited visualization of the heart demonstrates probable rounded artifact within the right ventricle ; recommend evaluation with echocardiogram for confirmation. No acute osseous abnormality is detected. Impression: Examination limited by patient condition, motion, and inability to breath hold. Intrahepatic biliary ductal dilatation. Dilated common bile duct. Question possibility of 3 mm distal calculus identified on a single series. The distal CBD appears to taper abruptly ; stricture or neoplasm cannot be entirely excluded on this limited examination. Gallbladder distension. Mild gallbladder wall thickening. Correlate clinically. Please note limited visualization of the heart demonstrates probable rounded artifact within the right ventricle ; recommend evaluation with echocardiogram for confirmation. 10 mm left lower pole renal lesion, incompletely characterized on this noncontrast study. This lesion was characterized by ultrasound as a cyst. Mild right-sided hydronephrosis.
[2017-02-16] MEDS: Mineral Oil Enema 135 ml RC SCH (19:07)
--- NOTE | 2017-02-16 19:27 | CON ---
DATE: 02/16/2017 HISTORY OF PRESENT ILLNESS: This is an 86-year-old with past medical history of hypertension, hyperl ipidemia, presented with rectal bleeding. Denies any nausea, vomiting or weight loss. Called to héctor doshiate the patient to rule out any parkinsonism. PAST MEDICAL HISTORY: As above. ALLERGIES: KNOWN ALLERGY TO PENICILLIN. PHYSICAL EXAMINATION: HEENT: Normocephalic, atraumatic. NECK: Supple. NEUROLOGIC: Awake, oriented to self. No aphasia. Cranial nerves II through XII were tested. Pupil s reactive. Moves all the extremities spontaneously. Deep tendon reflexes 1+. Both plantars are do wngoing. Sensory appears intact. Cerebellar gait deferred. IMPRESSION AND PLAN: An 86-year-old female with past medical history of hypertension, hyperlipidemia who presented with rectal bleeding and called to rule out any parkinsonism. CAT scan was not done. Abdominal ultrasound and CT abdomen and pelvis was done and reviewed. Continue present management. We will follow up. Wolf Jaime MD cc: [id number] TT: 02/16/2017 19:26:15 Confirmation # [id number] Dictation # [id number] hallie
[2017-02-16] MEDS: Sodium Chloride 0.9% 1,000 ML IV SCH ×2 (20:00→22:08)
[2017-02-16 21:52] LABS: IMMUNOGLOBULIN M 111.3 mg/dL (40.0-230.0)
[2017-02-16 21:53] LABS: IMMUNOGLOBULIN A 204.4 mg/dL (70.0-400.0)
[2017-02-17] MEDS: Mineral Oil Enema 135 ml RC SCH ×2 (00:51→05:44)
[2017-02-17] MEDS: Sodium Chloride 0.9% 1,000 ML IV SCH (05:19)
[2017-02-17 08:40] LABS: HEMATOCRIT 38.2 % (36.0-48.0); MEAN CORPUSCULAR HEMOGLOBIN 29.1 pg (25.0-35.0); MEAN CORPUSCULAR HGB CONC 35.1 g/dl (31.0-37.0); MEAN PLATELET VOLUME 11.7 fl (7.0-11.0); RED CELL DISTRIBUTION WIDTH 13.3 % (11.5-14.5); WHITE BLOOD COUNT 7.9 10^3/ul (4.5-11.0)
[2017-02-17 08:52] LABS: ALKALINE PHOSPHATASE 83 U/L (38-133); ALT/SGPT 162 U/L (7-56); AST/SGOT 79 U/L (15-39); BILIRUBIN,TOTAL 1.1 mg/dL (0.2-1.3); BLOOD UREA NITROGEN 7 mg/dL (7-21); CALCIUM 8.6 mg/dL (8.4-10.5); CARBON DIOXIDE 27 mmol/L (21-33); CHLORIDE 103 mmol/L (95-110); GFR AFRICAN-AMERICAN > 60; GLUCOSE,RANDOM 111 mg/dL (70-110); POTASSIUM 3.1 mmol/L (3.6-5.0); SODIUM 140 mmol/L (132-148); TOTAL PROTEIN 6.7 g/dL (5.8-8.3)
[2017-02-17] MEDS ORDERED: Potassium Chloride 20 mEq ER Tab PO ONE (09:39)
[2017-02-17] MEDS: POLYETHYLENE GLYCOL 3350 17 GM/Dose PACKET PO SCH ×2 (10:13→17:25)
[2017-02-17] MEDS: diltiaZEM 240 mg/24 Hours CD Cap PO SCH (10:13)
--- NOTE | 2017-02-17 11:39 | PN ---
DATE: 02/17/2017 I saw her this morning, resting in bed. She is feeling well, doing well, slept well, smiling, good spirits, better than when she came in. She is not eating, but she is stronger. PHYSICAL EXAMINATION: VITAL SIGNS: Temp 98.1, 96 pulse, 152/75 blood pressure, 20 respiratory rate, 99% O2 sat on room air. GENERAL: She is smiling at me in bed. She is alert. She is comfortable. No pain, no chest pain or shortness of breath. No abdominal pain. THROAT: Moist. NECK: Supple. HEART: Regular rate. LUNGS: Decreased breath sounds, but clear to auscultation. ABDOMEN: Soft, nontender, positive bowel sounds. No guarding, no rebound, no CVA tenderness. EXTREMITIES: No edema. MEDICATIONS: She is currently on Cardizem, MiraLax, Protonix, and IV fluids. LABORATORY DATA: She has a 4.9 white count, 13 hemoglobin, 38.4 hematocrit with 196 platelets. INR is 1.06. She had a 143 sodium yesterday, 3.5 potassium. BUN is 9, creatinine 0.5. GFR is greater than 60. Sugar is 97. Magnesium is 2. Iron is 68. Total bili is 1.1, AST is better at . ALT is 255. Total protein is 6.6. Troponin is less than 0.01. There is large blood and moderate bacteria in the urine. She was given a dose of CIPRO IV, WHICH CAUSED TO HAVE AN ALLERGIC REACTION. Now SHE IS ALLERGIC TO PENICILLINS AND CIPRO. Her IgA and IgM were okay. The serology was all negative for hepatitis A, B, and C. She had an MRCP, which showed a few things. It showed ductal dilatation, dilated common bile duct, 3-mm distal calculus single series, gallbladder distention, mild gallbladder wall thickening, artifact within the right ventricle; recommend an echocardiogram. A 10-mm left lower pole renal lesion, which could be a cyst. She had an EKG, which was normal. I ordered 2D echo to look at this ventricle, as per the MRCP. The CAT scan of the abdomen and pelvis showed mild proctitis gallbladder dilatation. She is being seen by GI. I am not sure what the plan is at this time. enemas, suppositories. She might need further biliary dilatation. It was also felt there was constipation and fecal impaction, and the neurologist did not give me much information except to continue doing what we are doing. I will see what the 2D echo says. She needs physical therapy, and get a direction if we can go home TCU or subacute rehab. I am going to put a TCU order in because I think she might need more physical therapy before she goes home as of this time. She is here for GI bleed, rectal bleeding, UTI, dilated common bile duct, and I called in infectious disease for the urine, which showed gram-negative fidel. Gonsalo Sabillon DO cc: [id number] TT: 02/17/2017 10:39:00 Confirmation # [id number] Dictation # [id number] lisette 02/17/2017 10:38:48 GRETA
--- NOTE | 2017-02-17 13:40 | CP.PCM.PN ---
<Risa Tavera - Last Filed: 02/17/17 16:10> Subjective - Date & Time of Evaluation Date of Evaluation: 02/17/17 Time of Evaluation: 13:36 - Subjective Subjective: Gastroenterology Fellow/PGY4 Progress Note Patient with intermittent confusion. Nursing denies acute events overnight. Nursing notes large liquid bowel movement this morning after administration of aggressive bowel regimen. A 12-point review of systems negative except for as above. Objective - Vital Signs/Intake and Output Vital Signs (last 24 hours): Temp Pulse Resp BP Pulse Ox 98.1 F 96 H 20 152/75 H 99 02/17/17 06:00 02/17/17 06:00 02/17/17 06:00 02/17/17 10:13 02/17/17 06:00 Intake and Output: 02/17/17 02/17/17 06:59 18:59 Intake Total 1440 Output Total 2751 Balance -1311 - Medications Medications: Current Medications Alprazolam (Xanax) 0.25 mg PO TID PRN; Protocol PRN Reason: Anxiety Stop: 02/24/17 14:01 Diltiazem HCl (Cardizem Cd) 240 mg PO DAILY [facility] Last Admin: 02/17/17 10:13 Dose: 240 mg Sodium Chloride (Sodium Chloride 0.9%) 1,000 mls @ 70 mls/hr IV .[id number] [facility] Last Admin: 02/17/17 05:19 Dose: 70 mls/hr Aztreonam (Azactam 1 Gm) 100 mls @ 100 mls/hr IVPB Q8 [facility] PRN Reason: Protocol Stop: 02/24/17 14:01 Metronidazole (Flagyl) 500 mg in 100 mls @ 100 mls/hr IVPB Q8 [facility] PRN Reason: Protocol Pantoprazole Sodium (Protonix Inj) 40 mg IVP DAILY [facility] Last Admin: 02/17/17 10:13 Dose: 40 mg Polyethylene Glycol (Miralax) 17 gm PO BID [facility] Last Admin: 02/17/17 10:13 Dose: 17 gm - Labs Labs: 02/17/17 07:50 02/17/17 07:50 PT 11.4 Seconds (9.9-11.8) 02/15/17 13:20 INR 1.06 (0.93-1.08) 02/15/17 13:20 APTT 26.8 Seconds (23.7-30.8) 02/15/17 13:20 - Constitutional Appears: Non-toxic, No Acute Distress - Head Exam Head Exam: ATRAUMATIC, NORMOCEPHALIC - Eye Exam Eye Exam: EOMI, PERRL Pupil Exam: PERRL. absent: Miosis, Mydriatic - ENT Exam ENT Exam: Mucous Membranes Moist, Normal Oropharynx - Neck Exam Neck Exam: Full ROM, Normal Inspection - Respiratory Exam Respiratory Exam: Clear to Ausculation Bilateral. absent: Rales, Rhonchi, Wheezes - Cardiovascular Exam Cardiovascular Exam: RRR, +S1, +S2. absent: Gallop, Rubs - GI/Abdominal Exam GI & Abdominal Exam: Soft, Normal Bowel Sounds. absent: Distended, Firm, Guarding, Rigid, Tenderness, Organomegaly, Rebound - Extremities Exam Extremities Exam: Normal Inspection. absent: Pedal Edema - Neurological Exam Neurological Exam: Alert, Awake - Psychiatric Exam Psychiatric exam: Normal Affect, Normal Mood - Skin Skin Exam: Dry, Intact, Normal Color, Warm Assessment and Plan - Assessment and Plan (Free Text) Assessment: 86 year old female with history of Hypertension, Hyperlipidemia, and Constipation presenting with hematochezia and rectal pain. CT A/P PO contrast showed stercoral proctitis with fecal impaction, mild intrahepatic dilatation, moderate to severe gallbladder dilatation, and CBD 1.2cm. Similar episode leading to ER visit 05/[address] A/P IV contrast showingstool throughout colon , fecal impaction with proctitis, normal gallbladder, and no biliary dilatation. Endorses prior colonoscopy years ago endorsed to be normal. Plan: >Ultrasound and MRCP with biliary dilatations and distended gallbladder >schedule for EUS with possible ERCP on >full liquid diet, NPO after midnight >negative Hepatitis panel, autoimmune workup >NPO after midnight >hematochezia likely in setting stercoral proctitis >H/H stable >hemodynamically stable >bowel regimen-Miralax BID >continue supportive care: pain control, IVFs >further recommendations after EUS/ERCP <Jenny Martines MD - Last Filed: 02/17/17 18:01> Objective - Vital Signs/Intake and Output Vital Signs (last 24 hours): Temp Pulse Resp BP Pulse Ox 98.1 F 96 H 20 152/75 H 99 02/17/17 06:00 02/17/17 06:00 02/17/17 06:00 02/17/17 10:13 02/17/17 06:00 Intake and Output: 02/17/17 02/17/17 06:59 18:59 Intake Total 1440 Output Total 2751 Balance -1311 - Medications Medications: Current Medications Alprazolam (Xanax) 0.25 mg PO TID PRN; Protocol PRN Reason: Anxiety Stop: 02/24/17 14:01 Diltiazem HCl (Cardizem Cd) 240 mg PO DAILY [facility] Last Admin: 02/17/17 10:13 Dose: 240 mg Sodium Chloride (Sodium Chloride 0.9%) 1,000 mls @ 70 mls/hr IV .[id number] [facility] Last Admin: 02/17/17 05:19 Dose: 70 mls/hr Aztreonam (Azactam 1 Gm) 100 mls @ 100 mls/hr IVPB Q8 [facility] PRN Reason: Protocol Stop: 02/24/17 14:01 Last Admin: 02/17/17 14:22 Dose: 100 mls/hr Metronidazole (Flagyl) 500 mg in 100 mls @ 100 mls/hr IVPB Q8 [facility] PRN Reason: Protocol Last Admin: 02/17/17 15:29 Dose: 100 mls/hr Pantoprazole Sodium (Protonix Inj) 40 mg IVP DAILY [facility] Last Admin: 02/17/17 10:13 Dose: 40 mg Polyethylene Glycol (Miralax) 17 gm PO BID [facility] Last Admin: 02/17/17 17:25 Dose: Not Given - Labs Labs: 02/17/17 07:50 02/17/17 07:50 PT 11.4 Seconds (9.9-11.8) 02/15/17 13:20 INR 1.06 (0.93-1.08) 02/15/17 13:20 APTT 26.8 Seconds (23.7-30.8) 02/15/17 13:20 Attending/Attestation - Attestation I have personally seen and examined this patient.: Yes I have fully participated in the care of the patient.: Yes I have reviewed all pertinent clinical information, including history, physical exam and plan: Yes Notes (Text): 02/17/17 17:59 Patient seen with GI fellow. This is a 86 year old female with history of HTN, HLD, and Constipation a/w hematochezia and rectal pain with Ct showing stercooral ulcers now on bowel regimen. Concern for elevated LFTs and IH and EH biliary dilation with CBD taper. Recommend bowel regimen with enema and EUS and ERCP in am. NPO past midnight
[2017-02-17] MEDS: Aztreonam 1 Gm in NS 100mL 100 ML IVPB SCH ×2 (14:22→22:15)
[2017-02-17] MEDS: metroNIDAZOLE IV 500 mg/100 ml 500 MG/100 ML BAG IVPB SCH ×2 (15:29→22:16)
--- NOTE | 2017-02-17 21:32 | CP.PCM.CON ---
History of Present Illness - History of Present Illness History of Present Illness: 86 year old female with PMH of HTN, dyslipidemia, history of vaginal prolapse, multinodular goiter, was brought in to [facility] complaining of rectal bleeding and pain associated with low back pain. She also has occasional abdominal discomfort and pain. She denies fever or chills, no nausea or vomiting , no chest pain, no SOB, has constipation, no diarrhea, no dysuria, no rhinorrhea, no cough, no dysphagia. In the ED, CT abdomen and pelvis was done which showed proctitis. There was also noted of gallbladder wall thickening, which was also seen on MRCP. Infectious Diseases consult is requested to further evaluate and manage. Review of Systems - Review of Systems All systems: reviewed and no additional remarkable complaints except (as per HPI ) Past Patient History - Tetanus Immunizations Tetanus Immunization: Unknown - Past Social History Smoking Status: Former Smoker - CARDIAC Hx Cardiac Disorders: Yes Hx Hypercholesterolemia: Yes Hx Hypertension: Yes - PULMONARY Hx Respiratory Disorders: No - NEUROLOGICAL Hx Neurological Disorder: No - HEENT Hx HEENT Problems: Yes (left eye sx) - RENAL Hx Chronic Kidney Disease: No - ENDOCRINE/METABOLIC Hx Endocrine Disorders: No - HEMATOLOGICAL/ONCOLOGICAL Hx Blood Disorders: No - INTEGUMENTARY Hx Dermatological Problems: Yes Other/Comment: red raised rash to face chest and abd, pt scratching abd - MUSCULOSKELETAL/RHEUMATOLOGICAL Hx Musculoskeletal Disorders: Yes (OSTEOPENIA) Hx Falls: No Hx Unsteady Gait: Yes (walker) Other/Comment: sciatica - GASTROINTESTINAL Other/Comment: colonopscopy - GENITOURINARY/GYNECOLOGICAL Hx Genitourinary Disorders: Yes Other/Comment: vaginal prolapse - PSYCHIATRIC Hx Psychophysiologic Disorder: No Hx Emotional Abuse: No Hx Physical Abuse: No - SURGICAL HISTORY Hx Surgeries: Yes Other/Comment: t&a, us guided thyroid bx - ANESTHESIA Hx Anesthesia: Yes Hx Anesthesia Reactions: No Hx Malignant Hyperthermia: No Meds Allergies/Adverse Reactions: Allergies Allergy/AdvReac Type Severity Reaction Status Date / Time ciprofloxacin Allergy Intermediate RASH Verified 02/16/17 20:17 Penicillins Allergy RASH Verified 02/15/17 13:08 - Medications Medications: Current Medications Diltiazem HCl (Cardizem Cd) 240 mg PO DAILY [facility] Last Admin: 02/16/17 10:06 Dose: 240 mg Sodium Chloride (Sodium Chloride 0.9%) 1,000 mls @ 70 mls/hr IV .[id number] [facility] Last Admin: 02/17/17 05:19 Dose: 70 mls/hr Pantoprazole Sodium (Protonix Inj) 40 mg IVP DAILY [facility] Last Admin: 02/16/17 10:08 Dose: 40 mg Polyethylene Glycol (Miralax) 17 gm PO BID [facility] Last Admin: 02/16/17 19:07 Dose: 17 gm Physical Exam - Constitutional Appears: Non-toxic, No Acute Distress - Head Exam Head Exam: NORMAL INSPECTION - ENT Exam ENT Exam: Mucous Membranes Moist - Neck Exam Neck exam: Negative for: Lymphadenopathy, Meningismus - Respiratory Exam Respiratory Exam: Decreased Breath Sounds - Cardiovascular Exam Cardiovascular Exam: +S1, +S2 - GI/Abdominal Exam GI & Abdominal Exam: Soft. absent: Tenderness Results - Vital Signs Recent Vital Signs: Last Vital Signs Temp 98.1 F 02/17/17 06:00 Pulse 96 H 02/17/17 06:00 Resp 20 02/17/17 06:00 BP 152/75 H 02/17/17 06:00 Pulse Ox 99 02/17/17 06:00 - Labs Result Diagrams: 02/17/17 07:50 02/17/17 07:50 Labs: Laboratory Results - last 24 hr 02/16/17 02/16/17 02/16/17 08:30 08:30 08:30 WBC RBC Hgb Hct MCV MCH MCHC RDW Plt Count MPV Sodium Potassium Chloride Carbon Dioxide Anion Gap BUN Creatinine Est GFR ( Amer) Est GFR (Non-Af Amer) Random Glucose Calcium Magnesium 2.0 Iron 68 Total Bilirubin AST ALT Alkaline Phosphatase Total Protein Albumin Globulin Albumin/Globulin Ratio IgG IgA IgM Hepatitis A IgM Ab Negative Hep Bs Antigen Negative Hep B Core IgM Ab Negative Hepatitis C Antibody Negative 02/16/17 02/17/17 02/17/17 14:12 07:50 07:50 WBC 7.9 D RBC 4.60 Hgb 13.4 Hct 38.2 MCV 83.0 MCH 29.1 MCHC 35.1 RDW 13.3 Plt Count 203 MPV 11.7 H Sodium 140 Potassium 3.1 L Chloride 103 Carbon Dioxide 27 Anion Gap 13 BUN 7 Creatinine 0.5 Est GFR ( Amer) > 60 Est GFR (Non-Af Amer) > 60 Random Glucose 111 H Calcium 8.6 Magnesium Iron Total Bilirubin 1.1 AST 79 H ALT 162 H Alkaline Phosphatase 83 Total Protein 6.7 Albumin 3.4 Globulin 3.3 Albumin/Globulin Ratio 1.0 L IgG 1235.0 IgA 204.4 IgM 111.3 Hepatitis A IgM Ab Hep Bs Antigen Hep B Core IgM Ab Hepatitis C Antibody Assessment & Plan - Assessment and Plan (Free Text) Plan: Assessment Proctitis associated with constipation and rectal bleeding R/O acute cholecystitis with thickened gallbladder wall and dilated common bile duct HTN dyslipidemia history of vaginal prolapse multinodular goiter Plan Started patient on Vancomycin, Azactam and Flagyl pending blood cx Follow up GI evaluation and recommendations Will monitor clinically
[2017-02-17] MEDS: Vancomycin 1gm in NS 250ml 1 GM/250 ML BAG IVPB SCH (22:21)
[2017-02-18] MEDS: Aztreonam 1 Gm in NS 100mL 100 ML IVPB SCH ×2 (06:14→16:08)
[2017-02-18] MEDS: metroNIDAZOLE IV 500 mg/100 ml 500 MG/100 ML BAG IVPB SCH ×2 (06:15→16:08)
[2017-02-18 07:25] LABS: HEMATOCRIT 34.5 % (36.0-48.0); MEAN CELL VOLUME 83.1 fL (80.0-105.0); MEAN CORPUSCULAR HEMOGLOBIN 29.4 pg (25.0-35.0); MEAN CORPUSCULAR HGB CONC 35.4 g/dl (31.0-37.0); MEAN PLATELET VOLUME 11.3 fl (7.0-11.0); RED CELL DISTRIBUTION WIDTH 13.3 % (11.5-14.5); WHITE BLOOD COUNT 7.2 10^3/ul (4.5-11.0)
[2017-02-18 07:51] LABS: ALB/GLOB RATIO 0.9 (1.1-1.8); ALKALINE PHOSPHATASE 63 U/L (38-133); ALT/SGPT 113 U/L (7-56); AST/SGOT 46 U/L (15-39); BLOOD UREA NITROGEN 6 mg/dL (7-21); CALCIUM 8.2 mg/dL (8.4-10.5); CARBON DIOXIDE 25 mmol/L (21-33); CHLORIDE 108 mmol/L (98-107); GFR AFRICAN-AMERICAN > 60; GLUCOSE,RANDOM 93 mg/dL (70-110); POTASSIUM 3.3 mmol/L (3.6-5.0); SODIUM 140 mmol/L (132-148)
[2017-02-18] MEDS ORDERED: Glucagon Recombinant 1 mg Inj ONE (08:18)
[2017-02-18] MEDS ORDERED: Iohexol 240 (50 ml) ONE (08:18)
[2017-02-18] MEDS ORDERED: Indomethacin 50 MG Suppository PR ONE (08:19)
[2017-02-18] MEDS ORDERED: Potassium Chloride 40 mEq/30 ml LIQ UD PO ONE (08:55)
[2017-02-18] MEDS: diltiaZEM 240 mg/24 Hours CD Cap PO SCH (08:59)
[2017-02-18] MEDS: POLYETHYLENE GLYCOL 3350 17 GM/Dose PACKET PO SCH ×2 (09:04→17:57)
--- NOTE | 2017-02-18 09:53 | PN ---
DATE: 02/18/2017 I saw her resting comfortably this morning. She slept well. She is in good spirits. I understand every now and then she gets confused, but for the most part this morning she feels well. She tells me she is hungry. There is an n.p.o. order up. She is going for and EUS and possible ERCP today with GI. I was told she also moved her bowels well. She was here also for constipation, which I think that helped a lot, also had some bronchitis. She is being seen by GI, infectious disease, and neurology. The MRCP showed intrahepatic biliary ductal dilatation, dilated common bile duct. We will see what today's procedures hold. PHYSICAL EXAMINATION: VITAL SIGNS: Temp 98.1, 80 pulse, 146/77 blood pressure, 20 respiratory rate, 98% O2 sat on room air. HEAD: Atraumatic, normocephalic. Throat is moist. NECK: Supple. HEART: Regular rate. LUNGS: Clear to auscultation. ABDOMEN: Soft. Positive bowel sounds. No guarding, no rebound. EXTREMITIES: No edema. She is also weak and needs physical therapy. I they recommended TCU or subacute rehab. I will talk with home health care social worker, case management to help us with that. MEDICATIONS: She is on Azactam, Cardizem, Flagyl, MiraLax, Protonix, IV fluids , vancomycin IV, Xanax as needed. LABORATORY DATA: White count 7.2, 12.2 hemoglobin, 34.5 hematocrit with 183 platelets. Sodium 140, potassium 3.3. I replaced the potassium. BUN 6, creatinine 0.5. GFR is greater than 60. Sugar is 93. Calcium is 8.2. Total bili is 1. AST is 46. ALT is 113 - both better. Alk phos 63. Total protein is 6. She had a moderate urinary tract infection. We will continue with aggressive treatment and care. I am hoping to get her subacute rehab or TCU once we are done with the workup for the gallbladder, and I think she is improving. I am glad she moved her bowels, and we will get physical therapy before she goes home. We will check her labs tomorrow. Gonsalo Sabillon DO cc: [phone] TT: 02/18/2017 09:51:44 Confirmation # [id number] Dictation # [id number] jn MTDD
[2017-02-18] MEDS: Vancomycin 1gm in NS 250ml 1 GM/250 ML BAG IVPB SCH (10:10)
[2017-02-18 13:03] LABS: INR 1.12 (0.93-1.08)
[2017-02-18] MEDS ORDERED: Propofol 10 mg/ml Inj (20 ML) ONE (14:01)
[2017-02-18] MEDS ORDERED: Midazolam 2 MG/2 ML VIAL ONE (14:01)
[2017-02-18] MEDS ORDERED: Succinylcholine 200 mg/10 ml Inj IV ONE (14:03)
[2017-02-18] MEDS ORDERED: Lactated Ringer's 1,000 ML IV SCH (14:56)
[2017-02-18 15:25] VITALS: RESP 18; TEMP 97.4
--- NOTE | 2017-02-18 15:37 | CARD ---
APPROVED REPORT EXAM: Two-dimensional and M-mode echocardiogram with Doppler and color Doppler. INDICATION LVFX/MR/CP 2D DIMENSIONS Left Atrium (2D)3.6 (1.6-4.0cm)IVSd0.9 (0.7-1.1cm) LVDd3.9 (3.9-5.9cm)PWd0.9 (0.7-1.1cm) LVDs2.8 (2.5-4.0cm)FS (%) 28.3 % LVEF (%)55.3 (>50%) M-Mode DIMENSIONS Aortic Root2.70 (2.2-3.7cm)Aortic Cusp Exc.1.30 (1.5-2.0cm) Aortic Valve AoV Peak Wctenvvg620.0cm/Steph Peak GR.15mmHgLVOT Peak Grkcfssh402.0cm/s LVOT VTI31.30cm Mitral Valve MV E Fhgmtyib35.9cm/sMV A Dctmxguq649.0cm/sE/A ratio0.7 TDI Lateral E' Peak V9.75cm/sMedial E' Peak V7.51cm/sE/Lateral E'8.5 E/Medial E'11.0 Pulmonary Valve PV Peak Ufuyqnxq89.1cm/sPV Peak Grad.2mmHg Tricuspid Valve TR Peak Crnlqgtr055be/sRAP KVJSLBOG81keSmGA Peak Gr.44mmHg ODYH86ctSq LEFT VENTRICLE The left ventricle is normal size. There is normal left ventricular wall thickness. The left ventricular function is normal. The left ventricular ejection fraction is within the normal range. There is normal LV segmental wall motion. Transmitral Doppler flow pattern is Grade III-reversible restrictive diastolic dysfunction. No left ventricle thrombus noted on this study. There is no ventricular septal defect visualized. There is no left ventricular aneurysm. There is no mass noted in the left ventricle. RIGHT VENTRICLE The right ventricle is normal size. There is normal right ventricular wall thickness. The right ventricular systolic function is normal. ATRIA The left atrium is borderline dilated, in long [place] The right atrium is borderline dilated, in long axis The interatrial septum is intact with no evidence for an atrial septal defect. AORTIC VALVE The aortic valve is calcified and displays decreased opening. There is trace aortic regurgitation. There is mild valvular aortic stenosis Vs AorticSclerosis There is no aortic valvular vegetation. MITRAL VALVE The mitral valve is thickened but opens well. Mitral annular calcification is mild. Mitral regurgitation is mild. There is no mitral valve stenosis. There is no evidence of mitral valve prolapse. TRICUSPID VALVE The tricuspid valve leaflets are thickened , but open well. There is moderate tricuspid regurgitation.RVSP-54 mmof hg. There is no tricuspid valve stenosis. There is no tricuspid valve prolapse or vegetation. PULMONIC VALVE The pulmonic valve is not well visualized. GREAT VESSELS The aortic root is normal in size. The ascending aorta is normal in size. The pulmonary artery is normal. The IVC is normal in size and collapses >50% with inspiration. PERICARDIAL EFFUSION There is no pleural effusion. There is no pericardial effusion. <Conclusion> Normal Chamber Size. EF-55% There is trace aortic regurgitation. There is mild valvular aortic stenosis Vs AorticSclerosis Mitral regurgitation is mild. There is moderate tricuspid regurgitation.RVSP-54 mmof hg. There is no pericardial effusion. The IVC is normal in size and collapses >50% with inspiration. No Vegetatation or thrombus noted.
[2017-02-18 15:59] VITALS: O2SAT 98
[2017-02-18 16:25] VITALS: BP 119/69
[2017-02-18 18:44] VITALS: PULSE 57
--- NOTE | 2017-02-18 22:20 | PN ---
DATE: 02/18/2017 The patient seen earlier this morning in 372, bed 1. An 86-year-old female in no acute distress, no fevers reported. PHYSICAL EXAMINATION: VITAL SIGNS: Temperature 97, blood pressure is 119/70, respiratory rate of 16. HEENT: Unremarkable. NECK: Supple. LUNGS: Have decreased breath sounds. HEART: Normal S1, S2. ABDOMEN: Soft, nontender. LABORATORY DATA: Reveals the urine culture has E. coli, sensitive to Cipro. Dr. Gonsalo Sabillon's note is reviewed. The patient had an EUS and ERCP today and preop diagnosis of r ectal bleeding and gastritis with sludge in the gallbladder. ASSESSMENT AND PLAN: This is an 86-year-old female with proctitis associated with constipation, rect al bleeding and Escherichia coli urinary tract infection and status post gastrointestinal evaluation. The patient on p.o. Cipro. Follow up as outpatient very closely. Discussed with the team taking c are of the patient. Phi Mack MD cc: [phone] TT: 02/18/2017 22:19:42 Confirmation # [id number] Dictation # [id number] lisette
[2017-02-18 22:42] LABS: LKM-1 Ab (IgG) <=20.0 U (<=20.0)
--- NOTE | 2017-02-26 12:39 | DS ---
She is in the [facility] and she was able to be transferred to the transitional care unit to finish her stay. She had multiple reasons to be in the hospital. She had a urinary tra ct infection. She had a rectal bleed. She got very weak, very difficult to walk and had a bed in [facility] transitional care unit. We were able to transfer over there. She will continue with Azactam, Card izem, the Flagyl, MiraLax, Protonix, IV fluids, vancomycin and Xanax. She will be seen by her infect ious disease doctor and GI doctor. When she gets well enough we will discharge her home. She is chau ng discharged from the hospital side to go to the transitional care unit. Gonsalo Sabillon DO cc: [id number] TT: 02/26/2017 12:38:34 lisette
== END 2017-02-18 20:05 | DRG 394 ==
LOC: ED 13:01 → ERH 14:58 → 2RSO 21:59 → 3RSO 02-17 09:20
PROVIDERS: ADMIT Family Medicine; ATTEND Family Medicine
PROC: BF47ZZZ Ultrasonography of Pancreas (ICD-10-PCS; 2017-02-18)
PROC: 0DJ08ZZ Inspection of Upper Intestinal Tract, Via Natural or Artificial Opening Endoscopic (ICD-10-PCS; principal; 2017-02-18 14:30)
PROC: BF4CZZZ Ultrasonography of Hepatobiliary System, All (ICD-10-PCS; 2017-02-18 14:30)
DX: K62.89 Other specified diseases of anus and rectum (principal); N39.0 Urinary tract infection, site not specified; K92.1 Melena; K29.70 Gastritis, unspecified, without bleeding; K83.8 Other specified diseases of biliary tract; B96.20 Unspecified Escherichia coli [E. coli] as the cause of diseases classified elsewhere; I10 Essential (primary) hypertension; N81.10 Cystocele, unspecified; K56.41 Fecal impaction; E04.2 Nontoxic multinodular goiter; E78.5 Hyperlipidemia, unspecified; M85.80 Other specified disorders of bone density and structure, unspecified site; Z87.891 Personal history of nicotine dependence; Z88.0 Allergy status to penicillin

== ENCOUNTER 2017-02-18 20:05 | Inpatient (IN) | payer OTHER, MEDICARE ==
[2017-02-18 22:54] VITALS: BMI 22.7
[2017-02-18] MEDS ORDERED: Pneumococcal 23-Valent Vaccine IM ONE (22:54)
[2017-02-18] MEDS: Aztreonam 1 Gm in NS 100mL 100 ML IVPB SCH (23:08)
[2017-02-18] MEDS: Sodium Chloride 0.9% 1,000 ML IV SCH (23:08)
[2017-02-18] MEDS: metroNIDAZOLE IV 500 mg/100 ml 500 MG/100 ML BAG IVPB SCH (23:11)
[2017-02-19] MEDS: metroNIDAZOLE IV 500 mg/100 ml 500 MG/100 ML BAG IVPB SCH ×3 (05:40→13:48)
[2017-02-19] MEDS: Aztreonam 1 Gm in NS 100mL 100 ML IVPB SCH ×3 (05:40→22:32)
[2017-02-19] MEDS: Vancomycin 1gm in NS 250ml 1 GM/250 ML BAG IVPB SCH ×2 (05:41→10:48)
[2017-02-19] MEDS ORDERED: Pantoprazole 40mg/100ml IVPB 40 MG/100 ML BAG IVPB SCH (06:00)
[2017-02-19 07:23] LABS: ADD MANUAL DIFF? NO
[2017-02-19 07:27] LABS: BASO # 0.02 K/mm3 (0.0-2.0); BASO % 0.3 % (0.0-3.0); EOS # 0.4 (0.0-0.7); EOS % 6.4 % (1.5-5.0); GRAN # 3.78 (1.4-6.5); GRAN % 60.8 % (50.0-68.0); HEMATOCRIT 34.7 % (36.0-48.0); LYMPH # 1.3 (1.2-3.4); LYMPH % 20.1 % (22.0-35.0); MEAN CELL VOLUME 84.4 fL (80.0-105.0); MEAN CORPUSCULAR HEMOGLOBIN 29.2 pg (25.0-35.0); MEAN CORPUSCULAR HGB CONC 34.6 g/dl (31.0-37.0); MEAN PLATELET VOLUME 11.6 fl (7.0-11.0); MONO # 0.8 (0.1-0.6); MONO % 12.4 % (1.0-6.0); PLATELET COUNT 177 10^3/uL (120.0-450.0); RED CELL DISTRIBUTION WIDTH 13.6 % (11.5-14.5); WHITE BLOOD COUNT 6.2 10^3/ul (4.5-11.0)
[2017-02-19 07:48] LABS: ALKALINE PHOSPHATASE 59 U/L (38-133); ALT/SGPT 93 U/L (7-56); AST/SGOT 37 U/L (15-39); BILIRUBIN,TOTAL 0.6 mg/dL (0.2-1.3); BLOOD UREA NITROGEN 9 mg/dL (7-21); CALCIUM 8.3 mg/dL (8.4-10.5); CARBON DIOXIDE 27 mmol/L (21-33); CHLORIDE 108 mmol/L (95-110); GFR AFRICAN-AMERICAN > 60; GLUCOSE,RANDOM 90 mg/dL (70-110); POTASSIUM 3.7 mmol/L (3.6-5.0); SODIUM 139 mmol/L (132-148); TOTAL PROTEIN 5.7 g/dL (5.8-8.3)
--- NOTE | 2017-02-19 08:09 | CP.PCM.PN ---
<Risa Tavera - Last Filed: 02/19/17 11:35> Subjective - Date & Time of Evaluation Date of Evaluation: 02/19/17 Time of Evaluation: 08:06 - Subjective Subjective: Gastroenterology Fellow/PGY4 Progress Note Patient notes having two loose bowel movements. Tolerating full liquids diet. A 12-point review of systems negative except for as above. Objective - Vital Signs/Intake and Output Vital Signs (last 24 hours): Temp Pulse Resp BP Pulse Ox 99.1 F 78 18 137/76 02/18/17 22:46 02/18/17 22:46 02/18/17 22:46 02/18/17 22:46 Intake and Output: 02/19/17 02/19/17 06:59 18:59 Output Total 50 Balance -50 - Medications Medications: Current Medications Alprazolam (Xanax) 0.25 mg PO TID PRN; Protocol PRN Reason: Anxiety Stop: 02/26/17 10:01 Diltiazem HCl (Cardizem Cd) 240 mg PO DAILY [facility] PRN Reason: Protocol Metronidazole (Flagyl) 500 mg in 100 mls @ 100 mls/hr IVPB Q8 [facility] PRN Reason: Protocol Last Admin: 02/18/17 23:11 Dose: 100 mls/hr Sodium Chloride (Sodium Chloride 0.9%) 1,000 mls @ 70 mls/hr IV .[id number] [facility] PRN Reason: Protocol Last Admin: 02/18/17 23:08 Dose: 70 mls/hr Vancomycin HCl (Vancomycin 1gm) 1 gm in 250 mls @ 167 mls/hr IVPB 0600,1800 [facility] PRN Reason: Protocol Pantoprazole Sodium (Protonix 40mg Ivpb) 40 mg in 100 mls @ 200 mls/hr IVPB 0600 [facility] Last Admin: 02/19/17 05:40 Dose: 200 mls/hr Polyethylene Glycol (Miralax) 17 gm PO DAILY [facility] PRN Reason: Protocol - Labs Labs: 02/19/17 07:00 02/19/17 07:00 - Constitutional Appears: Non-toxic, No Acute Distress - Head Exam Head Exam: ATRAUMATIC, NORMOCEPHALIC - Eye Exam Eye Exam: EOMI, PERRL Pupil Exam: PERRL. absent: Miosis, Mydriatic - ENT Exam ENT Exam: Mucous Membranes Moist, Normal Oropharynx - Neck Exam Neck Exam: Full ROM, Normal Inspection - Respiratory Exam Respiratory Exam: Clear to Ausculation Bilateral. absent: Rales, Rhonchi, Wheezes - Cardiovascular Exam Cardiovascular Exam: RRR, +S1, +S2. absent: Gallop, Rubs - GI/Abdominal Exam GI & Abdominal Exam: Soft, Normal Bowel Sounds. absent: Distended, Firm, Guarding, Rigid, Tenderness, Organomegaly, Rebound - Extremities Exam Extremities Exam: Full ROM. absent: Pedal Edema - Neurological Exam Neurological Exam: Alert, Awake - Psychiatric Exam Psychiatric exam: Normal Affect, Normal Mood - Skin Skin Exam: Dry, Intact, Normal Color, Warm Assessment and Plan - Assessment and Plan (Free Text) Assessment: 86 year old female with history of Hypertension, Hyperlipidemia, and Constipation presenting with hematochezia and rectal pain. CT A/P PO contrast showed stercoral proctitis with fecal impaction, mild intrahepatic dilatation, moderate to severe gallbladder dilatation, and CBD 1.2cm. Similar episode leading to ER visit 05/[address] A/P IV contrast showing stool throughout colon, fecal impaction with proctitis, normal gallbladder, and no biliary dilatation. Ultrasound and MRCP with biliary dilatations and distended gallbladder. Endorses prior colonoscopy years ago endorsed to be normal. Plan: >POD1 (02/18) EUS- CBD 9mm, no stones or sludge, gallbladder with sludge >no indication for ERCP >heart healthy diet >LFTs downtrending >pending autoimmune workup >Colace BID PRN >noted red rash on lower abdominal wall- discontinue vancomycin >ID managing- recommend Cipro for Ecoli UTI >will follow clinical course <Sb Bloom - Last Filed: 02/19/17 14:58> Objective - Vital Signs/Intake and Output Vital Signs (last 24 hours): Temp Pulse Resp BP Pulse Ox 97.3 F L 97 H 18 135/102 H 97 02/19/17 10:00 02/19/17 10:50 02/19/17 10:00 02/19/17 10:50 02/19/17 10:00 Intake and Output: 02/19/17 02/19/17 06:59 18:59 Output Total 50 Balance -50 - Medications Medications: Current Medications Alprazolam (Xanax) 0.25 mg PO TID PRN; Protocol PRN Reason: Anxiety Stop: 02/26/17 10:01 Diltiazem HCl (Cardizem Cd) 240 mg PO DAILY [facility] PRN Reason: Protocol Last Admin: 02/19/17 10:50 Dose: 240 mg Docusate Sodium (Colace) 100 mg PO BID PRN PRN Reason: Constipation Metronidazole (Flagyl) 500 mg in 100 mls @ 100 mls/hr IVPB Q8 [facility] PRN Reason: Protocol Last Admin: 02/19/17 13:48 Dose: 100 mls/hr Sodium Chloride (Sodium Chloride 0.9%) 1,000 mls @ 70 mls/hr IV .[id number] [facility] PRN Reason: Protocol Last Admin: 02/19/17 13:48 Dose: 70 mls/hr - Labs Labs: 02/19/17 07:00 02/19/17 07:00 Attending/Attestation - Attestation I have personally seen and examined this patient.: Yes I have fully participated in the care of the patient.: Yes I have reviewed all pertinent clinical information, including history, physical exam and plan: Yes Notes (Text): 02/19/17 14:55 I have seen and examined patient with GI fellow. No acute events overnight. She notes two loose bowel movements this morning. Interval development of maculopapular rash on abdomen noted. HTN Hyperlipidemia Constipation, stercoral proctitis Dilated CBD seen on CT imaging, s/p EUS showing normal caliber CBD without presence of biliary dilation UTI - Diet as tolerated - Continue with antibiotic therapy as per ID - suggest discontinuing Vancomycin given onset of abdominal rash - Continue with stool softner therapy - LFTs stable, continue to monitor and awaiting autoimmune panel - Will continue to monitor patient clinical course, case discussed with Dr. Sabillon
--- NOTE | 2017-02-19 09:49 | HP ---
I know her very well from house calls. She was put into the hospital when she came in with a rectal bleed, very weak, UTI, a little bit debilitated, low potassium, hypertension, constipated. She has h ad consults with GI, infectious disease. She has had multiple tests and now she is on the TCU for ph ysical therapy, further medicines, antibiotics and treatment before she can go home. She is starting to clear mentally also, but this morning, we believe she had a reaction, a rash to the Protonix. Alvina davenport had no medications for about 4-5 hours. They gave her Protonix IV and she had a rash, so I am katelyn g to discontinue the Protonix. She is an 86-year-old female who developed GI bleeding, a lot, and alvina davenport called 911 and came to the Emergency Room and now she is here. She has had, like I said, GI bleed, rectal bleeding, UTI, dilated common bile duct, debility, low potassium, hypertension, constipation, proctitis. PAST MEDICAL HISTORY: Arrhythmia, hypertension, osteopenia vaginal prolapse. She had eye surgery be fore. FAMILY HISTORY: She has hypertension in the family. SOCIAL HISTORY: She is a former smoker, no alcohol, no drugs. ALLERGIES: SHE IS ALLERGIC TO PENICILLIN. MEDICATIONS: She is currently on Cardizem, Flagyl IV, MiraLax, Protonix which I am going to stop, IV fluids, vancomycin IV and Xanax. REVIEW OF SYSTEMS: No acute vision changes or hearing changes, no sore throat. She is more alert an d appropriate, smiling and comfortable. There is no chest pain or shortness of breath. No palpitati ons, no wheezes, no rhonchi. Belly is softer and it is also no discomfort at this time. No abdomina l pain, no constipation, nausea, vomiting or diarrhea. She just increased her diet to regular. She was on clears up until yesterday. No more bright red blood in the rectum and the bottom is feeling a bit better. Extremities are weak. No edema. She is still worried. That is her baseline. Not as nervous, more appropriate mentally. PHYSICAL EXAMINATION: VITAL SIGNS: Today, she has a 99.1 temp, 78 pulse, 137/76 blood pressure, 18 respiratory rate. HEENT: Head is atraumatic, normocephalic. Extraocular muscles are intact. Pupils equal, reactive t o light and accommodation. Throat is moist, no erythema. NECK: Supple, no JVD. Thyroid is midline. LUNGS: Clear to auscultation bilaterally, fair exchange, better than the last time I listened to her lungs. HEART: Regular rate. Normal S1, S2. ABDOMEN: Soft, positive bowel sounds, no guarding, no rebound, no CVA tenderness. EXTREMITIES: Have no edema. She is a little bit stronger. She needs more physical therapy. SKIN: Warm, dry and intact. NEUROLOGIC: She is intact. Speech is normal, smiling, alert, comfortable. Cranial nerves II-XII gr ossly intact. Speech is normal. GCS is 15. GASTROINTESTINAL: The bowels are less inflamed. LYMPHATICS: No palpable lymphadenopathy noted. Thyroid is midline. LABORATORIES: She has a 139 sodium, potassium 3.7, BUN 9, creatinine 0.6, GFR is greater than 60, ellison gar is 92, calcium is 8.3, total bili is 0.6, AST is 37, ALT is 93, alk phos 59, total protein is 5.7 , albumin is 2.8. White count 6.2, hemoglobin 12, hematocrit 34.7, platelets 177. We will continue with her IV meds. I will stop the PROTONIX BECAUSE SHE HAD A RASH, ALLERGIC REACTIO N TO IT. We will continue as per GI, infectious disease and physical therapy. Gonsalo Sabillon DO cc: [id number] TT: 02/19/2017 09:48:51 en
[2017-02-19] MEDS ORDERED: POLYETHYLENE GLYCOL 3350 17 GM/Dose PACKET PO SCH ×2 (10:00)
[2017-02-19] MEDS: diltiaZEM 240 mg/24 Hours CD Cap PO SCH (10:50)
[2017-02-19] MEDS: Sodium Chloride 0.9% 1,000 ML IV SCH (13:48)
--- NOTE | 2017-02-19 21:01 | CON ---
DATE: 02/19/2017 The patient is in room 317. The patient was seen. CHIEF COMPLAINT: Weakness times several days. HISTORY OF PRESENT ILLNESS: This is an 86-year-old female seen recently in acute care. The patient is with a past medical history of hypertension, dyslipidemia, history of vaginal prolapse, multinodu lar goiter and cardiac disease who was admitted to the acute care with occasional abdominal pain and discomfort. No fevers and chills, no dysuria or frequency and now transferred to transitional care f or further care and physical therapy. REVIEW OF SYSTEMS: Reveals the patient states she is doing better. No fevers and chills now with ab dominal pain improved. No dysuria or frequency and no headaches. PAST MEDICAL HISTORY: Is significant for hypertension, dyslipidemia, vaginal prolapse, multinodular goiter, coronary artery disease and osteopenia. PAST SURGICAL HISTORY: Is significant for eye surgery. ALLERGIES: THE PATIENT IS ALLERGIC TO CIPRO AND PENICILLIN. PHYSICAL EXAMINATION: GENERAL: The patient is in bed with a temperature of 97, blood pressure is 130/100, respiratory rate of 18, a heart rate of 97 and a temperature 97.3. HEENT: Unremarkable. NECK: Supple. LUNGS: Have decreased breath sounds. HEART: Normal S1, S2. ABDOMEN: Soft and nontender, no rebound, no guarding, no masses. LABORATORY EXAMINATION: Reveals a white count of 6.2, hemoglobin of 12, platelets of 177. Chemistri es reveal the BUN of 8, creatinine of 0.6. Urinalysis is noted. Immunology is noted. Serology is n oted. Hepatitis C is negative. Microbiology reveals urine culture for pansensitive E. coli. Blood cultures are negative. ASSESSMENT AND PLAN: She is an 86-year-old female who was in the acute care and transferred to [facility], [place] with a history of hypertension, dyslipidemia, goiter, coronary artery disease, osteopeni a, admitted with proctitis associated with constipation and rectal bleeding and an Escherichia coli u rinary tract infection, who is ALLERGIC TO CIPRO AND PENICILLIN who is now on Azactam and Flagyl. patient had an EUS with ERCP yesterday and was found to have sludge in the gallbladder and gastriti s and unable to intubate the patient as per anesthesia' note. Will follow closely with you and will continue with Azactam and Flagyl. Phi Mack MD cc: [phone] TT: 02/19/2017 21:00:14 Confirmation # [id number] Dictation # [id number] dn
[2017-02-20] MEDS: Aztreonam 1 Gm in NS 100mL 100 ML IVPB SCH ×3 (05:43→22:11)
[2017-02-20] MEDS: Sodium Chloride 0.9% 1,000 ML IV SCH ×2 (05:45→15:42)
--- NOTE | 2017-02-20 07:44 | CP.PCM.PN ---
<Risa Tavera - Last Filed: 02/20/17 11:20> Subjective - Date & Time of Evaluation Date of Evaluation: 02/20/17 Time of Evaluation: 07:40 - Subjective Subjective: Gastroenterology Fellow/PGY4 Progress Note Patient denies further loose bowel movements. Body rash improving. Received benadryl for itching overnight. Tolerating regular diet. A 12-point review of systems negative except for as above. Objective - Vital Signs/Intake and Output Vital Signs (last 24 hours): Temp Pulse Resp BP Pulse Ox 99.1 F 75 14 136/65 97 02/19/17 16:02 02/19/17 16:02 02/19/17 16:02 02/19/17 16:02 02/19/17 10:00 - Medications Medications: Current Medications Alprazolam (Xanax) 0.25 mg PO TID PRN; Protocol PRN Reason: Anxiety Stop: 02/26/17 10:01 Diltiazem HCl (Cardizem Cd) 240 mg PO DAILY VIC PRN Reason: Protocol Last Admin: 02/19/17 10:50 Dose: 240 mg Diphenhydramine HCl (Benadryl) 25 mg PO Q8H PRN; Protocol PRN Reason: Itching / Pruritus Last Admin: 02/19/17 19:49 Dose: 25 mg Docusate Sodium (Colace) 100 mg PO BID PRN PRN Reason: Constipation Sodium Chloride (Sodium Chloride 0.9%) 1,000 mls @ 70 mls/hr IV .[id number] VIC PRN Reason: Protocol Last Admin: 02/20/17 05:45 Dose: Not Given Aztreonam (Azactam 1 Gm) 100 mls @ 100 mls/hr IVPB Q8 VIC PRN Reason: Protocol Stop: 02/26/17 22:01 Last Admin: 02/20/17 05:43 Dose: 100 mls/hr Metronidazole (Flagyl) 500 mg PO Q8 VIC PRN Reason: Protocol Stop: 02/26/17 22:01 Last Admin: 02/20/17 05:44 Dose: 500 mg - Labs Labs: 02/19/17 07:00 02/19/17 07:00 - Constitutional Appears: Non-toxic, No Acute Distress - Head Exam Head Exam: ATRAUMATIC, NORMOCEPHALIC - Eye Exam Eye Exam: EOMI, PERRL Pupil Exam: PERRL. absent: Miosis, Mydriatic - ENT Exam ENT Exam: Mucous Membranes Moist, Normal Oropharynx - Neck Exam Neck Exam: Full ROM, Normal Inspection - Respiratory Exam Respiratory Exam: Clear to Ausculation Bilateral. absent: Rales, Rhonchi, Wheezes - Cardiovascular Exam Cardiovascular Exam: RRR, +S1, +S2. absent: Gallop, Rubs - GI/Abdominal Exam GI & Abdominal Exam: Soft, Normal Bowel Sounds. absent: Distended, Firm, Guarding, Tenderness, Organomegaly, Rebound - Extremities Exam Extremities Exam: Normal Inspection. absent: Pedal Edema - Neurological Exam Neurological Exam: Alert, Awake - Psychiatric Exam Psychiatric exam: Normal Affect, Normal Mood - Skin Skin Exam: Dry, Intact, Normal Color, Warm Assessment and Plan - Assessment and Plan (Free Text) Assessment: 86 year old female with history of Hypertension, Hyperlipidemia, and Constipation presenting with hematochezia and rectal pain. CT A/P PO contrast showed stercoral proctitis with fecal impaction, mild intrahepatic dilatation, moderate to severe gallbladder dilatation, and CBD 1.2cm. Similar episode leading to ER visit 05/[address] A/P IV contrast showing stool throughout colon, fecal impaction with proctitis, normal gallbladder, and no biliary dilatation. Ultrasound and MRCP with biliary dilatations and distended gallbladder. Endorses prior colonoscopy years ago endorsed to be normal. Plan: >POD2 (02/18) EUS- CBD 9mm, no stones or sludge, gallbladder with sludge >no indication for ERCP >continue heart healthy diet >Colace BID PRN >abdominal rash improving >LFTs downtrending >pending autoimmune workup >Ecoli UTI- on Flagyl >thank you for opportunity to participate in the care of this patient <Sugar Navarro - Last Filed: 02/20/17 11:41> Objective - Vital Signs/Intake and Output Vital Signs (last 24 hours): Temp Pulse Resp BP Pulse Ox 99.1 F 75 14 136/65 97 02/19/17 16:02 02/19/17 16:02 02/19/17 16:02 02/19/17 16:02 02/19/17 10:00 - Medications Medications: Current Medications Alprazolam (Xanax) 0.25 mg PO TID PRN; Protocol PRN Reason: Anxiety Stop: 02/26/17 10:01 Diltiazem HCl (Cardizem Cd) 240 mg PO DAILY VIC PRN Reason: Protocol Last Admin: 02/20/17 09:39 Dose: 240 mg Diphenhydramine HCl (Benadryl) 25 mg PO Q8H PRN; Protocol PRN Reason: Itching / Pruritus Last Admin: 02/19/17 19:49 Dose: 25 mg Docusate Sodium (Colace) 100 mg PO BID PRN PRN Reason: Constipation Sodium Chloride (Sodium Chloride 0.9%) 1,000 mls @ 70 mls/hr IV .[id number] VIC PRN Reason: Protocol Last Admin: 02/20/17 05:45 Dose: Not Given Aztreonam (Azactam 1 Gm) 100 mls @ 100 mls/hr IVPB Q8 VIC PRN Reason: Protocol Stop: 02/26/17 22:01 Last Admin: 02/20/17 05:43 Dose: 100 mls/hr Metronidazole (Flagyl) 500 mg PO Q8 VIC PRN Reason: Protocol Stop: 02/26/17 22:01 Last Admin: 02/20/17 05:44 Dose: 500 mg - Labs Labs: 02/20/17 07:00 02/20/17 07:00 Attending/Attestation - Attestation I have personally seen and examined this patient.: Yes I have fully participated in the care of the patient.: Yes I have reviewed all pertinent clinical information, including history, physical exam and plan: Yes Notes (Text): Patient seen and examined with GI fellow. Agree with her note as documented above with the following additions/exceptions. This is an 86 year old female with h/o HTN, HL, constipation who is admitted with stercoral proctitis, CBD dilation. She is s/p EUS showing no evidence of biliary abnormality. LFTs improving. She is tolerating PO without difficulty, no nausea or vomiting. Loose stools now resolved/abdominal rash improving. Would continue supportive care. Monitor H/H, currently stable. She would benefit from elective colonoscopic evaluation, which can be performed as outpatient. Please call with any further questions/concerns. 02/20/17 11:40
[2017-02-20 08:05] LABS: HEMATOCRIT 34.3 % (36.0-48.0); MEAN CELL VOLUME 83.3 fL (80.0-105.0); MEAN CORPUSCULAR HEMOGLOBIN 28.9 pg (25.0-35.0); MEAN CORPUSCULAR HGB CONC 34.7 g/dl (31.0-37.0); MEAN PLATELET VOLUME 12.2 fl (7.0-11.0); RED CELL DISTRIBUTION WIDTH 13.4 % (11.5-14.5)
[2017-02-20 08:24] LABS: ALKALINE PHOSPHATASE 57 U/L (38-133); ALT/SGPT 81 U/L (7-56); AST/SGOT 38 U/L (15-39); BILIRUBIN,TOTAL 0.6 mg/dL (0.2-1.3); BLOOD UREA NITROGEN 7 mg/dL (7-21); CALCIUM 8.4 mg/dL (8.4-10.5); CARBON DIOXIDE 27 mmol/L (21-33); CHLORIDE 103 mmol/L (95-110); GFR AFRICAN-AMERICAN > 60; GLUCOSE,RANDOM 99 mg/dL (70-110); POTASSIUM 3.1 mmol/L (3.6-5.0); SODIUM 139 mmol/L (132-148); TOTAL PROTEIN 5.9 g/dL (5.8-8.3)
[2017-02-20] MEDS: diltiaZEM 240 mg/24 Hours CD Cap PO SCH (09:39)
--- NOTE | 2017-02-20 19:06 | PN ---
DATE: 02/20/2017 The patient is in bed, no acute distress, nontoxic. PHYSICAL EXAMINATION: VITAL SIGNS: Temperature is 98, blood pressure is 130/60, respiratory rate of 16. HEENT: Unremarkable. NECK: Supple. LUNGS: Have decreased breath sounds. HEART: Normal S1, S2. ABDOMEN: Soft, nontender. LABORATORY DATA: Reveals the patient to have a white count of 6.0, hemoglobin of 11. The chemistrie s reveal BUN of 7, creatinine of 0.5. Microbiology reveals the stool for C. diff antigen and toxin a re both negative. Blood cultures are reported to be negative. She did have a urine culture which gr ew Escherichia coli on 02/15/2017, relatively sensitive organism. Review of the orders reveals the pa tient to be on p.o. Flagyl and IV aztreonam. ALLERGIES: CIPRO AND PENICILLIN. ASSESSMENT AND PLAN: An 86-year-old female who was in acute care, now in the transitional care with a history of hypertension, dyslipidemia, goiter, coronary artery disease, osteopenia, proctitis, admi tted on this admission with proctitis and Escherichia coli urinary tract infection with ALLERGIES TO CIPRO, PENICILLIN. On Azactam and Flagyl. EUS with ERCP was done, found sludge in the gallbladder a nd gastritis. Will continue the present course. Appears to be improving. Phi Mack MD cc: 350 TT: 02/20/2017 19:05:33 Confirmation # [id number] Dictation # [id number] hallie
[2017-02-21] MEDS: Sodium Chloride 0.9% 1,000 ML IV SCH (04:59)
[2017-02-21] MEDS: Aztreonam 1 Gm in NS 100mL 100 ML IVPB SCH ×3 (05:00→21:18)
[2017-02-21] MEDS: diltiaZEM 240 mg/24 Hours CD Cap PO SCH (10:46)
--- NOTE | 2017-02-21 16:21 | PN ---
DATE: 02/21/2017 The patient is in bed, in no acute distress, nontoxic, no fevers and chills. PHYSICAL EXAMINATION: VITAL SIGNS: Temperature is 98, blood pressure is 120/70, respiratory rate 16. HEENT: Unremarkable. NECK: Supple. LUNGS: Have decreased breath sounds. HEART: Normal S1, S2. ABDOMEN: Soft. LABORATORY EXAMINATION: Reveals the patient's white count to be 6, hemoglobin of 11. BUN of 7, crea tinine of 0.5. Urinalysis is noted. Microbiology is reviewed. Stool for C. diff antigen and toxin from yesterday is reported to be negative antigen, negative toxin. Review of orders reveals the patient to be on aztreonam IV and p.o. Flagyl. ASSESSMENT AND PLAN: An 86-year-old female with hypertension, dyslipidemia, goiter, coronary artery disease, osteopenia, proctitis. Admitted with proctitis with Escherichia coli urinary tract infectio n, ALLERGIC TO PENICILLIN AND CIPRO, on Azactam and Flagyl and will complete a short course of antibi otic therapy. The patient is doing much better. Phi Mack MD cc: 350 TT: 02/21/2017 16:20:36 Confirmation # [id number] Dictation # [id number] en
[2017-02-22] MEDS: Sodium Chloride 0.9% 1,000 ML IV SCH ×2 (01:35→11:20)
[2017-02-22] MEDS: Aztreonam 1 Gm in NS 100mL 100 ML IVPB SCH ×3 (05:05→21:25)
[2017-02-22 06:46] LABS: ADD MANUAL DIFF? NO
[2017-02-22 07:15] LABS: BASO # 0.04 K/mm3 (0.0-2.0); BASO % 0.8 % (0.0-3.0); EOS # 0.4 (0.0-0.7); EOS % 7.8 % (1.5-5.0); GRAN # 2.32 (1.4-6.5); GRAN % 44.3 % (50.0-68.0); HEMATOCRIT 38.5 % (36.0-48.0); LYMPH # 1.8 (1.2-3.4); LYMPH % 34.9 % (22.0-35.0); MEAN CELL VOLUME 83.9 fL (80.0-105.0); MEAN CORPUSCULAR HGB CONC 34.5 g/dl (31.0-37.0); MEAN PLATELET VOLUME 11.7 fl (7.0-11.0); MONO # 0.6 (0.1-0.6); MONO % 12.2 % (1.0-6.0); PLATELET COUNT 255 10^3/uL (120.0-450.0); RED CELL DISTRIBUTION WIDTH 13.5 % (11.5-14.5); WHITE BLOOD COUNT 5.2 10^3/ul (4.5-11.0)
[2017-02-22 07:20] LABS: ALB/GLOB RATIO 0.9 (1.1-1.8); ALKALINE PHOSPHATASE 65 U/L (38-133); ALT/SGPT 72 U/L (7-56); AST/SGOT 36 U/L (15-39); BILIRUBIN,TOTAL 0.5 mg/dL (0.2-1.3); BLOOD UREA NITROGEN 4 mg/dL (7-21); CALCIUM 8.9 mg/dL (8.4-10.5); CARBON DIOXIDE 30 mmol/L (21-33); CHLORIDE 103 mmol/L (95-110); GFR AFRICAN-AMERICAN > 60; GLUCOSE,RANDOM 104 mg/dL (70-110); MAGNESIUM 1.8 mg/dL (1.7-2.2); POTASSIUM 3.4 mmol/L (3.6-5.0); SODIUM 141 mmol/L (132-148); TOTAL PROTEIN 6.9 g/dL (5.8-8.3)
--- NOTE | 2017-02-22 08:36 | PN ---
DATE: 02/21/2017 The patient is an 86-year-old female sent to the TCU for further evaluation, at this point, has not h ad any further episodes of any bloody bowel movements, is tolerating p.o. intake. No chest pain, no shortness of breath, no nausea, no vomiting. PHYSICAL EXAMINATION: VITAL SIGNS: Blood pressure is currently 120/67, pulse rate of 70. Temperature is 98.3. O2 saturat ion is 97 on room air. HEENT: Normocephalic, atraumatic. Pale conjunctivae. Nonicteric sclerae. NECK: No JVD, no thyromegaly. CARDIOVASCULAR: Regular rate and rhythm. S1, S2 appreciated. No S3 noted. LUNGS: Bilateral air entry is positive. No wheezes or rhonchi. ABDOMEN: Nondistended, nontender. Positive bowel sounds. EXTREMITIES: Peripheral pulses +2 with a trace pitting edema. LABORATORY DATA: WBCs of 6.0, hemoglobin 11.9, hematocrit of 34.3, platelets of 197. Chemistry: Wi thin normal except for potassium of 3.1. We will actively replace today. ASSESSMENT: 1. Gastrointestinal bleed. 2. Arrhythmia. 3. Hypertension. 4. Constipation. PLAN: At this time, we will continue her IV antibiotics that she is receiving, also IV fluids. We w ill replace the potassium at this point and follow up labs in the morning. Marcus Price MD cc: [id number] TT: 02/21/2017 12:27:53 Confirmation # [id number] Dictation # [id number] lisette
--- NOTE | 2017-02-22 09:09 | PN ---
DATE: 02/22/2017 I see her in the transitional care unit. She is resting comfortably in bed. She is in good spirits. She is hungry. She ate some of her breakfast. She was in the hospital for rectal bleed, weakness, UTI, low potassium, hypertension, constipation. She has multiple consults on the case. She needs p hysical therapy and meds before she can go home. She is much more alert and oriented right now and I think she is improving. She is being seen by GI and infectious disease. PHYSICAL EXAMINATION: VITAL SIGNS: 98 temp, 73 pulse, 146/74 blood pressure, 16 respiratory rate, 99% O2 sat on nasal gregorio cathy. HEENT: Head is atraumatic, normocephalic. Mouth is moist. NECK: Supple. HEART: Regular rate. LUNGS: Clear to auscultation with decreased breath sounds. ABDOMEN: Soft. EXTREMITIES: No edema. MEDICATIONS: She is currently on Azactam, Benadryl, Cardizem, Colace, Flagyl, IV fluids and Xanax. LABORATORY DATA: She had a stool occult blood that is now negative. She has a 5.2 white count, hemo globin is up to 13.3, hematocrit 38.5, platelets of 255. Sodium 141. Potassium was 3.1, it is up to 3.4. She does not like the IV. I will give her potassium p.o. BUN is 4, creatinine 0.5. GFR is g reater than 60, sugar is 104, calcium is 8.9, total bili is 0.5, magnesium is 1.8. AST is 36, ALT is 72, alk phos 65. Total protein 6.9 We will keep her in physical therapy at [facility], IV antibiotics, checking her labs, replacing her potassi um. Hopefully, in the next 4-5 days she will be walking well enough with the walker that she can be home again and she is improving mentally also. Will check her labs tomorrow. Gonsalo Sabillon DO cc: [id number] TT: 02/22/2017 09:08:31 Confirmation # [id number] Dictation # [id number] mn
[2017-02-22] MEDS: diltiaZEM 240 mg/24 Hours CD Cap PO SCH (11:00)
[2017-02-22] MEDS ORDERED: Potassium Chloride 20 mEq/15 ml LIQ UD PO STA (15:05)
--- NOTE | 2017-02-22 20:58 | PN ---
DATE: 02/22/2017 The patient is in bed in no acute distress, nontoxic. PHYSICAL EXAMINATION: VITAL SIGNS: Temperature is 98, blood pressure is 140/70, respiratory rate of 18. HEENT: Unremarkable. NECK: Supple. LUNGS: Have decreased breath sounds. HEART: Normal S1, S2. ABDOMEN: Soft, nontender. LABORATORY DATA: Reveals a white count of 5.2, hemoglobin of 13, platelets of 255. Chemistries reve al the BUN of 4, creatinine of 0.5. Microbiology is noted. ASSESSMENT AND PLAN: An 86-year-old female with hypertension, dyslipidemia, goiter, coronary artery disease, osteopenia, proctitis, admitted with proctitis with Escherichia coli urinary tract infection , ALLERGIC TO PENICILLIN, CIPRO. On Azactam, Flagyl would complete a short course of antibiotics. R eview of the medications reveals the patient is on p.o. Flagyl and IV Azactam. Phi Mack MD cc: 350 TT: 02/22/2017 20:57:57 Confirmation # [id number] Dictation # [id number] lisette
[2017-02-23] MEDS: Sodium Chloride 0.9% 1,000 ML IV SCH ×3 (03:33→21:38)
[2017-02-23] MEDS: diltiaZEM 240 mg/24 Hours CD Cap PO SCH (04:48)
[2017-02-23] MEDS: Aztreonam 1 Gm in NS 100mL 100 ML IVPB SCH ×3 (06:01→21:36)
[2017-02-23 07:38] LABS: HEMATOCRIT 36.5 % (36.0-48.0); MEAN CELL VOLUME 83.5 fL (80.0-105.0); MEAN CORPUSCULAR HEMOGLOBIN 28.8 pg (25.0-35.0); MEAN CORPUSCULAR HGB CONC 34.5 g/dl (31.0-37.0); MEAN PLATELET VOLUME 11.2 fl (7.0-11.0); RED CELL DISTRIBUTION WIDTH 13.4 % (11.5-14.5)
[2017-02-23 07:56] LABS: ALB/GLOB RATIO 0.9 (1.1-1.8); ALKALINE PHOSPHATASE 57 U/L (38-133); ALT/SGPT 62 U/L (7-56); AST/SGOT 35 U/L (15-39); BILIRUBIN,TOTAL 0.5 mg/dL (0.2-1.3); BLOOD UREA NITROGEN 8 mg/dL (7-21); CALCIUM 8.6 mg/dL (8.4-10.5); CARBON DIOXIDE 29 mmol/L (21-33); CHLORIDE 104 mmol/L (98-107); GFR AFRICAN-AMERICAN > 60; GLUCOSE,RANDOM 102 mg/dL (70-110); POTASSIUM 3.4 mmol/L (3.6-5.0); SODIUM 137 mmol/L (132-148); TOTAL PROTEIN 6.4 g/dL (5.8-8.3)
--- NOTE | 2017-02-23 08:07 | PN ---
DATE: 02/23/2017 She had some chest pain last night. She is sitting out of bed to chair, but is better now. She is currently on Azactam, Benadryl, Cardizem, Colace, Flagyl, potassium, IV fluids and Xanax. She is feeling better now. Chest pain was fleeting and she slept well last night. PHYSICAL EXAMINATION: VITAL SIGNS: Temp 98.3, 86 pulse, blood pressure is down to 113/71. It was as high as 171/81, much better now. Respiratory rate is 20, 97% O2 sat on room air. GENERAL: I see her sitting out of bed to chair. She is comfortable. She is smiling at me. She wan ts to eat and she wants to do well in physical therapy. Maybe, she was a little confused last night. I am not sure. HEAD: Atraumatic, normocephalic. THROAT: Moist. NECK: Supple. HEART: Regular rate. LUNGS: Clear to auscultation. ABDOMEN: Soft. EXTREMITIES: No edema at this time. LABORATORY DATA: She has a 141 sodium, potassium 3.4 yesterday. I put her on potassium. We will se e what this morning's level is. BUN is 4, creatinine 0.5, GFR is greater than 60, sugar is 104, calc ium is 8.9, magnesium 1.8, total bili is 0.5, ALT is 72. The white count today is 6, hemoglobin 12.6 , hematocrit 36.5, platelets are 244. Overall, she is comfortable right now. She is being seen by infectious disease and GI. She has hype rtension, high cholesterol, goiter, coronary artery disease, proctitis, gastrointestinal bleed, Esche richia coli infection. She is on Azactam and Flagyl. We will continue with aggressive treatment and care, physical therapy, diet. I discontinued the Cancino catheter. Check her labs tomorrow and encou raged her to eat well and discussed with nurse. Gonsalo Sabillon DO cc: [id number] TT: 02/23/2017 08:06:33 Confirmation # [id number] Dictation # [id number] en
[2017-02-23] MEDS: Potassium Chloride 20 mEq ER Tab PO SCH (08:57)
--- NOTE | 2017-02-23 18:39 | CP.PCM.PN ---
Subjective - Date & Time of Evaluation Date of Evaluation: 02/23/17 Time of Evaluation: 11:45 - Subjective Subjective: Comfortable on a chair, not in distress, afebrile overnight, less abdominal discomfort. Objective - Vital Signs/Intake and Output Vital Signs (last 24 hours): Temp Pulse Resp BP Pulse Ox 98.3 F 86 20 113/74 97 02/23/17 06:00 02/23/17 06:00 02/23/17 06:00 02/23/17 06:30 02/23/17 06:00 Intake and Output: 02/23/17 02/23/17 06:59 18:59 Intake Total 1250 Output Total 2100 Balance -850 - Medications Medications: Current Medications Alprazolam (Xanax) 0.25 mg PO TID PRN; Protocol PRN Reason: Anxiety Stop: 02/26/17 10:01 Diltiazem HCl (Cardizem Cd) 240 mg PO DAILY VIC PRN Reason: Protocol Last Admin: 02/23/17 04:48 Dose: 240 mg Diphenhydramine HCl (Benadryl) 25 mg PO Q8H PRN; Protocol PRN Reason: Itching / Pruritus Last Admin: 02/22/17 21:25 Dose: 25 mg Docusate Sodium (Colace) 100 mg PO BID PRN PRN Reason: Constipation Last Admin: 02/21/17 13:13 Dose: 100 mg Sodium Chloride (Sodium Chloride 0.9%) 1,000 mls @ 70 mls/hr IV .[id number] VIC PRN Reason: Protocol Last Admin: 02/23/17 04:51 Dose: Not Given Aztreonam (Azactam 1 Gm) 100 mls @ 100 mls/hr IVPB Q8 VIC PRN Reason: Protocol Stop: 02/26/17 22:01 Last Admin: 02/23/17 06:01 Dose: 100 mls/hr Metronidazole (Flagyl) 500 mg PO Q8 VIC PRN Reason: Protocol Stop: 02/26/17 22:01 Last Admin: 02/23/17 05:03 Dose: 500 mg Potassium Chloride (K-Dur 20 Meq Er Tab) 20 meq PO 0800 VIC Last Admin: 02/23/17 08:57 Dose: 20 meq - Labs Labs: 02/23/17 07:00 02/23/17 07:00 - Constitutional Appears: Non-toxic, No Acute Distress - Head Exam Head Exam: NORMAL INSPECTION - ENT Exam ENT Exam: Mucous Membranes Moist - Neck Exam Neck Exam: absent: Lymphadenopathy, Meningismus - Respiratory Exam Respiratory Exam: Decreased Breath Sounds - Cardiovascular Exam Cardiovascular Exam: +S1, +S2 - GI/Abdominal Exam GI & Abdominal Exam: Soft. absent: Tenderness Assessment and Plan - Assessment and Plan (Free Text) Plan: Assessment Proctitis associated with constipation and rectal bleeding, slowly improving R/O acute cholecystitis with thickened gallbladder wall and dilated common bile duct HTN dyslipidemia history of vaginal prolapse multinodular goiter Plan continue Azactam and Flagyl day 7 Will continue to monitor clinically
[2017-02-24] MEDS: diltiaZEM 240 mg/24 Hours CD Cap PO SCH ×2 (01:29→09:01)
[2017-02-24] MEDS: Aztreonam 1 Gm in NS 100mL 100 ML IVPB SCH ×3 (05:33→22:04)
[2017-02-24 07:25] LABS: HEMATOCRIT 37.6 % (36.0-48.0); MEAN CELL VOLUME 83.9 fL (80.0-105.0); MEAN CORPUSCULAR HEMOGLOBIN 29.2 pg (25.0-35.0); MEAN CORPUSCULAR HGB CONC 34.8 g/dl (31.0-37.0); MEAN PLATELET VOLUME 10.9 fl (7.0-11.0); RED CELL DISTRIBUTION WIDTH 13.7 % (11.5-14.5); WHITE BLOOD COUNT 5.1 10^3/ul (4.5-11.0)
[2017-02-24 07:32] LABS: ALKALINE PHOSPHATASE 58 U/L (38-133); ALT/SGPT 58 U/L (7-56); AST/SGOT 39 U/L (15-39); BILIRUBIN,TOTAL 0.5 mg/dL (0.2-1.3); BLOOD UREA NITROGEN 10 mg/dL (7-21); CARBON DIOXIDE 30 mmol/L (21-33); CHLORIDE 102 mmol/L (98-107); GFR AFRICAN-AMERICAN > 60; GLUCOSE,RANDOM 100 mg/dL (70-110); POTASSIUM 3.9 mmol/L (3.6-5.0); SODIUM 141 mmol/L (132-148); TOTAL PROTEIN 6.9 g/dL (5.8-8.3)
[2017-02-24] MEDS ORDERED: Potassium Chloride 20 mEq ER Tab PO ONE (07:59)
--- NOTE | 2017-02-24 08:34 | PN ---
DATE: 02/24/2017 I saw her resting comfortably in bed in the transitional care unit. She slept well. She is feeling well. She is taking her medications well. She is on Azactam, Benadryl, Cardizem, Colace, Flagyl, po tassium, IV fluid which is on hold, and Xanax. She is smiling. She is eating well. She is doing be tter in physical therapy and she wants to go home. I think it is 2 more days if I am not mistaken. PHYSICAL EXAMINATION: VITAL SIGNS: She has a 98 temp, 75 pulse, 161/75 blood pressure, 18 respiratory rate, 98% O2 sat on room air. HEENT: Head is atraumatic, normocephalic. Throat is moist. NECK: Supple. HEART: Regular rate. LUNGS: Decreased breath sounds, but clear to auscultation. ABDOMEN: Soft. EXTREMITIES: No edema. LABORATORY DATA: She has a 5.1 white count, 13.1 hemoglobin, 37.6 hematocrit with 260 platelets. So dium 137, potassium is a little bit low at 3.4. I will make sure she is given her potassium, BUN 8, creatinine 0.4, GFR is greater than 60, sugar is 102, calcium is 8.6, total bili is 0.5, AST is 35, A LT is 52, alk phos 57, total protein 6.4. Stool occult blood was negative at this time. When she ca me in, it was positive. She is being seen by infectious disease. They want to continue the Azactam and Flagyl for a couple m ore days. She is improving, overall much improved. We will check her labs tomorrow. I will give he r an extra dose of potassium today and I will stop the IV fluids since she is eating and drinking wel l and we will check her labs tomorrow. Takes the physical therapy well. Gonsalo Sabillon DO cc: [id number] TT: 02/24/2017 08:32:58 Confirmation # [id number] Dictation # [id number] tn
[2017-02-24] MEDS: Potassium Chloride 20 mEq ER Tab PO SCH (13:18)
--- NOTE | 2017-02-24 17:29 | CP.PCM.PN ---
Subjective - Date & Time of Evaluation Date of Evaluation: 02/24/17 Time of Evaluation: 11:55 - Subjective Subjective: Comfortable in bed, afebrile not in distress. Objective - Vital Signs/Intake and Output Vital Signs (last 24 hours): Temp Pulse Resp BP Pulse Ox 98 F 66 14 120/69 95 02/24/17 16:00 02/24/17 16:00 02/24/17 16:00 02/24/17 16:00 02/24/17 16:00 Intake and Output: 02/24/17 02/24/17 06:59 18:59 Intake Total 420 Output Total 400 Balance 20 - Medications Medications: Current Medications Alprazolam (Xanax) 0.25 mg PO TID PRN; Protocol PRN Reason: Anxiety Stop: 02/26/17 10:01 Diltiazem HCl (Cardizem Cd) 240 mg PO DAILY VIC PRN Reason: Protocol Last Admin: 02/24/17 09:01 Dose: 240 mg Diphenhydramine HCl (Benadryl) 25 mg PO Q8H PRN; Protocol PRN Reason: Itching / Pruritus Last Admin: 02/23/17 21:37 Dose: 25 mg Docusate Sodium (Colace) 100 mg PO BID PRN PRN Reason: Constipation Last Admin: 02/21/17 13:13 Dose: 100 mg Aztreonam (Azactam 1 Gm) 100 mls @ 100 mls/hr IVPB Q8 VIC PRN Reason: Protocol Stop: 02/26/17 22:01 Last Admin: 02/24/17 14:17 Dose: 100 mls/hr Metronidazole (Flagyl) 500 mg PO Q8 VIC PRN Reason: Protocol Stop: 02/26/17 22:01 Last Admin: 02/24/17 14:18 Dose: 500 mg Potassium Chloride (K-Dur 20 Meq Er Tab) 20 meq PO 0800 VIC Last Admin: 02/24/17 13:18 Dose: 20 meq - Labs Labs: 02/24/17 06:30 02/24/17 06:30 - Constitutional Appears: Non-toxic, No Acute Distress - Head Exam Head Exam: NORMAL INSPECTION - ENT Exam ENT Exam: Mucous Membranes Moist - Neck Exam Neck Exam: absent: Lymphadenopathy, Meningismus - Respiratory Exam Respiratory Exam: Decreased Breath Sounds - Cardiovascular Exam Cardiovascular Exam: +S1, +S2 - GI/Abdominal Exam GI & Abdominal Exam: Soft. absent: Tenderness Assessment and Plan - Assessment and Plan (Free Text) Plan: Assessment Proctitis associated with constipation and rectal bleeding, slowly improving R/O acute cholecystitis with thickened gallbladder wall and dilated common bile duct HTN dyslipidemia history of vaginal prolapse multinodular goiter Plan continue Azactam and Flagyl day 8 Will continue to monitor clinically
[2017-02-25] MEDS: Aztreonam 1 Gm in NS 100mL 100 ML IVPB SCH ×3 (05:10→21:19)
[2017-02-25 07:12] LABS: HEMATOCRIT 36.1 % (36.0-48.0); MEAN CELL VOLUME 84.1 fL (80.0-105.0); MEAN CORPUSCULAR HEMOGLOBIN 28.7 pg (25.0-35.0); MEAN CORPUSCULAR HGB CONC 34.1 g/dl (31.0-37.0); MEAN PLATELET VOLUME 11.3 fl (7.0-11.0); RED CELL DISTRIBUTION WIDTH 13.7 % (11.5-14.5); WHITE BLOOD COUNT 4.6 10^3/ul (4.5-11.0)
[2017-02-25 07:15] LABS: ALKALINE PHOSPHATASE 53 U/L (38-133); ALT/SGPT 56 U/L (7-56); AST/SGOT 29 U/L (15-39); BILIRUBIN,TOTAL 0.6 mg/dL (0.2-1.3); BLOOD UREA NITROGEN 11 mg/dL (7-21); CALCIUM 8.8 mg/dL (8.4-10.5); CARBON DIOXIDE 30 mmol/L (21-33); CHLORIDE 103 mmol/L (98-107); GFR AFRICAN-AMERICAN > 60; GLUCOSE,RANDOM 95 mg/dL (70-110); POTASSIUM 3.9 mmol/L (3.6-5.0); SODIUM 138 mmol/L (132-148); TOTAL PROTEIN 6.3 g/dL (5.8-8.3)
[2017-02-25] MEDS: Potassium Chloride 20 mEq ER Tab PO SCH (08:25)
--- NOTE | 2017-02-25 09:00 | PN ---
DATE: 02/25/2017 The patient is in the transitional care unit. She is resting comfortably in bed. She is in good spirits. The plan is for her to go home tomorrow. She is trying hard in physical therapy. She is walking with the walker. She is eating well. She is currently on Azactam, Benadryl, Cardizem, Colace, Flagyl, potassium, and Xanax, and she is not in any pain, and she is eating. PHYSICAL EXAMINATION: VITAL SIGNS: Temp 98, 66 pulse, 120/69 blood pressure, 14 respiratory rate, 95 % O2 sat on room air. HEAD: Atraumatic, normocephalic. Throat is moist. NECK: Supple. GENERAL: Alert and oriented x 3, smiling, happy, pleasant. HEART: Regular rate. LUNGS: Decreased breath sounds, but clear to auscultation. ABDOMEN: Soft. EXTREMITIES: No edema. LABORATORY DATA: She has a 4.6 white count, 12.3 hemoglobin, 36.1 hematocrit with 251 platelets. She has a 138 sodium. Potassium is 3.9. BUN 11, creatinine 0.6. GFR is greater than 60. Sugar is 95. Calcium is 8.8. Total bili is 0.6. AST is 29. ALT is. Alk phos is Total protein is 6.3. Stool was negative. When she came in, it was positive. She is being seen by infectious disease and GI. She is currently on Flagyl and Azactam. She is here for constipation and rectal bleeding, thickened gallbladder, hypertension, and she needs physical therapy. She is improving. We will check her labs tomorrow, and hopefully, she will be able to be discharged tomorrow home, or I will do house-calls on her. She improved greatly. Gonsalo Sabillon DO cc: [id number] TT: 02/25/2017 09:00:16 Confirmation # [id number] Dictation # [id number] jn GRETA
[2017-02-25] MEDS: diltiaZEM 240 mg/24 Hours CD Cap PO SCH (09:54)
--- NOTE | 2017-02-25 14:33 | PN ---
DATE: 02/25/2017 The patient is in bed, in no acute distress, nontoxic. PHYSICAL EXAMINATION: VITAL SIGNS: Temperature is 97, blood pressure is 130/70, respiratory rate of 18. HEENT: Unremarkable. NECK: Supple. LUNGS: Have decreased breath sounds. HEART: Normal S1, S2. ABDOMEN: Soft, nontender. LABORATORY EXAMINATION: Reveals a white count of 4.6, hemoglobin of 12, platelets of 251. BUN of 11 , creatinine of 0.6. Stool for C. diff antigen and toxin are negative. The patient is on aztreonam and Flagyl. Dr. Gonsalo Sabillon's note is reviewed. ASSESSMENT AND PLAN: An 86-year-old female with proctitis associated with constipation, rectal bleed ing, improving, rule out acute cholecystitis and thickened gallbladder and dilated common bile duct. Currently, day #9 of Azactam and Flagyl. Will most likely discontinue the antibiotics in next 24 ho urs. Phi Mack MD cc: [id number] TT: 02/25/2017 14:32:29 Confirmation # [id number] Dictation # [id number] en
[2017-02-25 16:33] VITALS: O2SAT 98
[2017-02-26] MEDS: Aztreonam 1 Gm in NS 100mL 100 ML IVPB SCH ×2 (05:09→13:31)
[2017-02-26 06:51] LABS: ALKALINE PHOSPHATASE 55 U/L (38-133); ALT/SGPT 52 U/L (7-56); AST/SGOT 33 U/L (15-39); BILIRUBIN,TOTAL 0.5 mg/dL (0.2-1.3); BLOOD UREA NITROGEN 11 mg/dL (7-21); CALCIUM 9.1 mg/dL (8.4-10.5); CARBON DIOXIDE 27 mmol/L (21-33); CHLORIDE 102 mmol/L (95-110); GFR AFRICAN-AMERICAN > 60; GLUCOSE,RANDOM 121 mg/dL (70-110); POTASSIUM 3.6 mmol/L (3.6-5.0); SODIUM 139 mmol/L (132-148); TOTAL PROTEIN 6.7 g/dL (5.8-8.3)
[2017-02-26 07:08] LABS: HEMATOCRIT 37.8 % (36.0-48.0); MEAN CORPUSCULAR HEMOGLOBIN 29.1 pg (25.0-35.0); MEAN CORPUSCULAR HGB CONC 34.7 g/dl (31.0-37.0); MEAN PLATELET VOLUME 11.5 fl (7.0-11.0); RED CELL DISTRIBUTION WIDTH 13.6 % (11.5-14.5); WHITE BLOOD COUNT 3.9 10^3/ul (4.5-11.0)
[2017-02-26] MEDS: Potassium Chloride 20 mEq ER Tab PO SCH (07:58)
--- NOTE | 2017-02-26 09:53 | PN ---
DATE: 02/26/2017 The patient is in bed, in no acute distress, nontoxic. No fevers, no chills. PHYSICAL EXAMINATION: VITAL SIGNS: Temperature is 98, blood pressure is 120/70, respiratory rate of 16. HEENT: Unremarkable. NECK: Supple. LUNGS: Have decreased breath sounds. HEART: Normal S1, S2. ABDOMEN: Soft, nontender. LABORATORY DATA: Reveals a white count of 3.9, hemoglobin of 13 and platelets of 266. BUN of 11, cr eatinine of 0.6. Microbiology is noted. C. diff is negative antigen, negative toxin. ASSESSMENT AND PLAN: This is an 86-year-old female with proctitis associated constipation, rectal bl eeding, improving. Day #10 of Azactam and Flagyl. Today is the last day of antibiotics. Phi Mack MD cc: [id number] TT: 02/26/2017 09:52:42 Confirmation # [id number] Dictation # [id number] renetta
[2017-02-26] MEDS: diltiaZEM 240 mg/24 Hours CD Cap PO SCH (10:28)
[2017-02-26 10:32] VITALS: BP 134/67; PULSE 69
[2017-02-26 12:03] VITALS: RESP 20; TEMP 97.6
--- NOTE | 2017-02-26 12:54 | DS ---
I saw the patient resting comfortably in bed this morning. She did have a right arm swelling from pu lling the IV last night when she went to the bathroom and now it is a little bit infiltrated, but it is not so bad. I do not see any redness, a little bit swollen and she is worried about that, but she is going to go home today. She will be on Cardizem-CD, Colace, potassium, and Xanax. She does not need any more antibiotics as per infectious disease. PHYSICAL EXAMINATION: VITAL SIGNS: Good. They are 97.5 temp, 83 pulse, 134/76 blood pressure, 18 respiratory rate, 98% O2 sat on room air. HEENT: Head is atraumatic, normocephalic. Her throat is moist. NECK: Supple. HEART: Regular rate. LUNGS: Clear to auscultation. ABDOMEN: Soft. EXTREMITIES: With good range of motion. The right arm is mildly swollen, but less than last night t he nurses said. No redness and no tenderness to palpation. She a little bit worried about going home. We will call the son. She will have [facility] home vi siting nurses. I will do a house call on her Wednesday to check on her. She had a 139 sodium, potassium 3.6, BUN is 11, creatinine 0.6, GFR is greater than 60, sugar is 121, calcium is 9.1, total bili is 0.5, AST is 33, ALT is 52, alkaline phosphatase 55, total protein 6.7. White count is 3.9, hemoglobin 13.1, hematocrit 37.8, platelets of 266. The last occult blood was negative. She was here for a rectal bleed and debility, and she did very well. I will see her Wednesday on a hous e call. Gonsalo Sabillon DO cc: [id number] TT: 02/26/2017 12:53:43 en
== END 2017-02-26 14:37 | disposition home health service (06) | DRG 945 ==
LOC: TRCU 20:05
PROVIDERS: ADMIT Family Medicine; ATTEND Family Medicine
PROC: F08Z1FZ Dressing Techniques Treatment using Assistive, Adaptive, Supportive or Protective Equipment (ICD-10-PCS; 2017-02-20)
PROC: F08Z2FZ Grooming/Personal Hygiene Treatment using Assistive, Adaptive, Supportive or Protective Equipment (ICD-10-PCS; 2017-02-20)
PROC: F07Z9ZZ Gait Training/Functional Ambulation Treatment (ICD-10-PCS; principal; 2017-02-21)
PROC: F07Z8ZZ Transfer Training Treatment (ICD-10-PCS; 2017-02-21)
PROC: F07L6ZZ Therapeutic Exercise Treatment of Musculoskeletal System - Lower Back / Lower Extremity (ICD-10-PCS; 2017-02-21)
DX: R53.81 Other malaise (principal); N39.0 Urinary tract infection, site not specified; I10 Essential (primary) hypertension; B96.20 Unspecified Escherichia coli [E. coli] as the cause of diseases classified elsewhere; K62.89 Other specified diseases of anus and rectum; Z88.0 Allergy status to penicillin; M85.80 Other specified disorders of bone density and structure, unspecified site; N81.10 Cystocele, unspecified; E78.5 Hyperlipidemia, unspecified; E04.2 Nontoxic multinodular goiter; I25.10 Atherosclerotic heart disease of native coronary artery without angina pectoris; K56.41 Fecal impaction; K82.8 Other specified diseases of gallbladder; R21 Rash and other nonspecific skin eruption; K29.70 Gastritis, unspecified, without bleeding; I49.9 Cardiac arrhythmia, unspecified; R22.31 Localized swelling, mass and lump, right upper limb